=== PATIENT | female | born 1965 | race Caucasian/White ===

== ENCOUNTER 2021-11-18 04:27 | Emergency (ER) | payer OTHER, SELFPAY ==
[2021-11-18] VITALS (10 sets, daily range): BP systolic 92–122; BP diastolic 71–88; PULSE 72–100; RESP 4–16; TEMP 35.7–36.3; O2SAT 55–100; BMI 19.9
--- NOTE | 2021-11-18 04:45 | RAD_ITS ---
STUDY: X-RAY CHEST REASON FOR EXAM: Female, 56 years old. S/p intubation TECHNIQUE: Single AP portable view of the chest. COMPARISON: None. FINDINGS: Endotracheal tube tip 2.2 cm superior to the kimberli. Enteric tube coiling over the level of the gastric fundus with catheter tip over the gastric antrum. There is no demonstrated pneumothorax. There are superimposed monitor leads. There are areas of hyperinflation. There is no demonstrated pleural abnormality. Normal size heart. Normal mediastinum and adriana. Normal visualized pulmonary arteries. Normal visualized aortic arch and descending thoracic aorta. Normal visualized thoracic spine. Normal visualized ribs, clavicles, and shoulders. Air distention of upper abdominal bowel. RAD/Chest 1 View (Portable) IMPRESSION: Lines appear in good position. No pulmonary edema, congestive heart failure or confluent pneumonia. Air distended upper abdominal bowel. Electronically Signed: Yulia Bocanegra MD at 5:47 EDT Reading Location ID and State: , Service support ,
--- NOTE | 2021-11-18 04:45 | CT_ITS ---
STUDY: CT BRAIN WITHOUT CONTRAST REASON FOR EXAM: Female, 56 years old. altered mental status RADIATION DOSAGE (If Supplied By Facility): CTDIvol = ( 44.99 ) mGy, DLP = ( 846.73 ) mGycm TECHNIQUE: Transaxial CT imaging of the brain was performed without administration of intravenous contrast material. Individualized dose optimization techniques were used for this CT. COMPARISON: No relevant priors. FINDINGS: Normal soft tissue structures. Normal calvarium. There is mild cerebral atrophy With widening of the extra-axial spaces and ventricular dilatation. Prominent second and third ventricular system. There are areas of decreased attenuation within the white matter tracts of the supratentorial brain, consistent with microvascular disease changes. Normal basal ganglia and thalami. Normal brainstem. Normal cerebellum. There is no intracranial hemorrhage. There are no findings of an acute ischemic infarction. Normal visualized paranasal sinuses. CT/Brain/Head without Contrast IMPRESSION: Chronic involutional changes of the brain. Prominent second and third ventricular system possible due to normal pressure hydrocephalus. Electronically Signed: Yulia Bocanegra MD at 5:45 EDT Reading Location ID and State: , Service support ,
--- NOTE | 2021-11-18 04:45 | EKG12_ITS ---
Test Reason : UNRESPONSIVE Blood Pressure : / mmHG Vent. Rate : 075 BPM Atrial Rate : 075 BPM P-R Int : 122 ms QRS Dur : 074 ms QT Int : 404 ms P-R-T Axes : 026 012 048 degrees QTc Int : 451 ms Sinus rhythm with occasional Premature ventricular complexes Low voltage QRS Borderline ECG Confirmed by BOAZ ZIEGLER, TASIA ([id number]), website/blog editor ZEUS ESPINOZA ([id number]) on 11/21/2021 11:05:57 A M Referred By: GILBERT Confirmed By:SACHI SANDRA MD
[2021-11-18 04:56] LABS: Allen Test Positive; Base Excess -2 mmol/L (-2 to +2); Bicarbonate 22.1 mmol/L (22-26); Blood Gas Specimen Type ART; FI02 100; O2 Delivery Device Bagging; PO2 308 mmHG (75-100); SITE R Radial; SO2 100 % (95-99); Total Carbon Dioxide 23 mmol/L; pCO2 32.5 mmHg (35-45); pH 7.44 (7.35-7.45)
[2021-11-18] MEDS: Hydrocortisone Sod Succinate 100 MG/2 ML Vial IV (05:00)
[2021-11-18 05:02] LABS: Absolute Neutrophil Count 11.8 X10^3/uL (2.0-7.7); Basophil# 0.11 X10^3/uL; Basophil% 0.6 % (0-1); Eosinophil# 0.32 X10^3/uL; Eosinophils% 1.7 % (0-5); Hematocrit 34.3 % (37-47); Hemoglobin 11.7 g/dL (12.0-15.0); Lymphocyte % 23.9 % (19-41); Mean Corp Hgb Conc 34.1 g/dL (32-36); Mean Corpuscular Hgb 29.5 pg (27.0-32.0); Mean Corpuscular Volume 86.4 fL (81-99); Mean Platelet Vol. 12.5 fl (6.2-12.0); Monocyte# 1.71 X10^3/uL; Monocyte% 9.3 % (0-10); NRBC Flagged by Analyzer 0 % (0-5); Neutrophil # 11.77 X10^3/uL (2.7-7.7); Neutrophil % 63.8 % (47-70); POSITIVE DIFFERENTIAL YES; Platelet Count 117 K/mm3 (150-450); RBC Distribution Width CV 14.3 % (11.6-14.6); RBC Distribution Width SD 45.3 fl (35.1-43.9); Red Blood Count 3.97 M/mm3 (4.2-5.4); White Blood Count 18.4 K/mm3 (4.4-11.0)
[2021-11-18 05:03] LABS: Differential Indicated SCAN CRITERIA MET
[2021-11-18 05:10] LABS: International Normalized Ratio 1.2; Prothrombin Time (Protime)PT. 14.4 SECONDS (11.7-14.9)
[2021-11-18 05:11] LABS: Partial Thromboplast Time 27.5 Seconds (24.1-36.2)
[2021-11-18 05:20] LABS: Differential Comment SCANNED
[2021-11-18 05:27] LABS: Anion Gap 7 (5-15); BUN 31 mg/dL (7-18); BUN/Creat Ratio 13.6 RATIO (10-20); Calcium,Total 8.9 mg/dL (8.5-10.1); Chloride 105 mmol/L (98-107); Creatinine, Serum 2.28 mg/dL (0.55-1.02); EST Glomerular Filtration Rate 24 mL/min (>60); Est Glom Filt Rate - Afr Amer 29 mL/min (>60); Estimated Creatinine Clearance 25.39 ml/min; Glucose 164 mg/dL (74-106); Magnesium 2.1 mg/dL (1.6-2.6); Potassium 3.4 mmol/L (3.5-5.1); Sodium Level 138 mmol/L (136-145); Thyroid Stim Hormone (TSH) 5.07 uIU/mL (0.358-3.74); Troponin-I HS 4 pg/mL (3.0-54.0)
--- NOTE | 2021-11-18 05:34 | EDS_ITS ---
HPI History of Present Illness Chief Complaint: Mental Status Change Narrative Narrative: Patient is a 56-year-old female from [facility] who has past medical history of MS. reportedly intermediate found her unresponsive in a pile of emesis and due to the change in mental status called EMS. EMS states that for them she has been awake and moving all extremities but upon arrival to the hospital had a questionable seizure-like activity and then change in mental status. The patient is obtunded at this time and cannot offer any further history. [facility] Medical History Anxiety Hypertension Multiple sclerosis Allergy/AdvReac Type Severity Reaction Status Date / Time 1,4-diaminobenzene Allergy NEEDS Verified 11/18/21 05:00 FOLLOW-UP Family History unable to obtain Surgical History unable to obtain Social History (Updated 11/18/21 @ 06:[address] David Avina MD) Smoking Status: Unknown if ever smoked counseling given: other ROS ROS ED Review of Systems ROS Unobtainable: due to mental status EXAM Physical Exam Const Vital Signs: 11/18/21 04:29 11/18/21 04:36 11/18/21 04:45 Temperature 96.6 F L Temperature Source Temporal Pulse Rate 100 80 Respiratory Rate 4 L 14 Respiratory Effort Mechanically Ventilated Respiratory Depth Normal Respiratory Pattern Normal Normal Blood Pressure Blood Pressure Mean Pulse Ox 55 100 96 Oxygen Delivery Method Room Air Mechanical Ventilator Fraction of Inspired Oxygen (FIO2) 30 11/18/21 05:01 11/18/21 05:31 11/18/21 06:46 Temperature 96.3 F L Temperature Source Temporal Pulse Rate 74 80 72 Respiratory Rate 14 15 14 Respiratory Effort Respiratory Depth Respiratory Pattern Blood Pressure 100/71 92/72 Blood Pressure Mean 80 78 Pulse Ox 97 95 97 Oxygen Delivery Method Mechanical Ventilator Mechanical Ventilator Fraction of Inspired Oxygen (FIO2) 30 15 30 11/18/21 06:55 11/18/21 07:08 Temperature 97.3 F L Temperature Source Temporal Pulse Rate 83 81 Respiratory Rate 16 16 Respiratory Effort Respiratory Depth Respiratory Pattern Blood Pressure 96/84 H 110/76 Blood Pressure Mean 88 87 Pulse Ox 97 98 Oxygen Delivery Method Mechanical Ventilator Mechanical Ventilator Fraction of Inspired Oxygen (FIO2) 30 Positive well developed and cachectic General Appearance ED: well developed and cachectic Nutritional Appearance: cachectic HEENT HEENT Narrative: No signs of depressed or basilar skull fracture. There does appear to be right-sided tongue biting noted. No oral lesions. No airway edema however gag reflex is not present. Eyes Eyes Narrative: Pupils are midpoint and sluggish to respond General Eye ED: Yes pale conjunctiva Neck no JVD Chest Wall palpation of chest normal Resp Resp Narrative: Patient's breath sounds are diminished throughout with rhonchi in bilateral bases. She has agonal respirations upon arrival at a rate of approximately 2-4. Cardio regular rate and regular rhythm Rate: other Other Details: Radial pulses are +2-4 bilaterally are equal and symmetric GI non-distended and no masses GI Narrative: Bowel sounds are hypoactive. No fluid wave or pulsatile mass. Palpation: soft Extremity Extremity Narrative: No bony deformity or joint effusion noted Neuro Neuro Narrative: Patient is obtunded with GCS of 6. She does withdrawal all extremities to pain. With sternal rub patient does moan. There is no obvious facial droop noted Skin Skin Narrative: Skin is pale in color without obvious secondary changes to suggest trauma or infection. MDM MDM MDM Narrative Medical decision making narrative: Patient had an acute change upon arrival to the ER from EMS. EMS states that she seemed to be grabbing at things that were not there and then she became very pale and cool she dropped her pulse ox down to 55% and had agonal respiration she had a lot of secretions coming from her mouth as well and was not protecting her airway and her GCS was 6 and therefore she was intubated as documented below. I did note that prior to intubation there seem to be an abrasion to the right side of the tongue concerning for possible seizure. Patient's papers from the intermediate did not report any history of this nor other any antiseizure medications listed on her medication list. Noncontrast CT of the brain showed chronic changes from her MS but no acute bleed or mass. By exam she had a rhonchi on auscultation and secretions in her airway concerning for aspiration but chest x-ray does not show any acute infection at this time. Patient's urine sample does show infection but she has a chronic indwelling Lucia and is hard to determine if this is from contamination/colonization or true infection. White count is elevated as well as her lactic which could be related to stress response and seizure activity. Patient was started on Unasyn which should cover the urine as well as possible aspiration. Blood cultures and urine cultures were obtained. Patient did have improvement of her mental status to the point where she was reaching towards a 2 but would still not follow command and therefore she was started on Versed. After discussing case with the bank analyst with possibility of new onset seizure it was recommended that she be given a Keppra bolus. At this time we do not have a functional EEG machine at our facility and cannot truly evaluate this patient to know if her change in mental status is secondary to seizure activity. Therefore she will be transferred to [facility]. The case was discussed with our bank analyst and he is willing to accept the patient at this time. Lab Data Attestation: I reviewed the patient's lab results. Labs: Laboratory Results - last 24 hr 11/18/21 11/18/21 11/18/21 04:45 04:45 04:45 WBC 18.4 H RBC 3.97 L Hgb 11.7 L Hct 34.3 L MCV 86.4 MCH 29.5 MCHC 34.1 RDW Std Deviation 45.3 H RDW Coeff of Elizabeth 14.3 Plt Count 117 L MPV 12.5 H Immature Gran % (Auto) 0.700 Neut % (Auto) 63.8 Lymph % (Auto) 23.9 [place] % (Auto) 9.3 Eos % (Auto) 1.7 Baso % (Auto) 0.6 Absolute Neuts (auto) 11.8 H Absolute Lymphs (auto) 4.40 Nucleated RBC % 0 Differential Comment SCANNED Diff Path Review January foll PT 14.4 INR 1.2 APTT 27.5 Sodium 138 Potassium 3.4 L Chloride 105 Carbon Dioxide 26.0 Anion Gap 7 BUN 31 H Creatinine 2.28 H Estim Creat Clear Calc 25.39 Est GFR (MDRD) Af Amer 29 L Est GFR (MDRD) Non-Af 24 L BUN/Creatinine Ratio 13.6 Glucose 164 H Lactic Acid Calcium 8.9 Magnesium 2.1 Ammonia Troponin I High Sens 4 Procalcitonin TSH 5.07 H Urine Color Urine Clarity Urine pH Ur Specific [place] Urine Protein Urine Glucose (UA) Urine Ketones Urine Occult Blood Urine Nitrite Urine Bilirubin Urine Urobilinogen Ur Leukocyte Esterase Urine RBC Urine WBC Ur Squamous Epith Cells Ur Transition Epith Cell Calcium Oxalate Crystal Urine Bacteria Urine Mucus 11/18/21 11/18/21 11/18/21 04:45 04:45 05:30 WBC RBC Hgb Hct MCV MCH MCHC RDW Std Deviation RDW Coeff of Elizabeth Plt Count MPV Immature Gran % (Auto) Neut % (Auto) Lymph % (Auto) [place] % (Auto) Eos % (Auto) Baso % (Auto) Absolute Neuts (auto) Absolute Lymphs (auto) Nucleated RBC % Differential Comment Diff Path Review PT INR APTT Sodium Potassium Chloride Carbon Dioxide Anion Gap BUN Creatinine Estim Creat Clear Calc Est GFR (MDRD) Af Amer Est GFR (MDRD) Non-Af BUN/Creatinine Ratio Glucose Lactic Acid 3.1 H* Calcium Magnesium Ammonia 19.0 Troponin I High Sens Procalcitonin 0.17 H TSH Urine Color Urine Clarity Urine pH Ur Specific [place] Urine Protein Urine Glucose (UA) Urine Ketones Urine Occult Blood Urine Nitrite Urine Bilirubin Urine Urobilinogen Ur Leukocyte Esterase Urine RBC Urine WBC Ur Squamous Epith Cells Ur Transition Epith Cell Calcium Oxalate Crystal Urine Bacteria Urine Mucus 11/18/21 05:56 WBC RBC Hgb Hct MCV MCH MCHC RDW Std Deviation RDW Coeff of Elizabeth Plt Count MPV Immature Gran % (Auto) Neut % (Auto) Lymph % (Auto) [place] % (Auto) Eos % (Auto) Baso % (Auto) Absolute Neuts (auto) Absolute Lymphs (auto) Nucleated RBC % Differential Comment Diff Path Review PT INR APTT Sodium Potassium Chloride Carbon Dioxide Anion Gap BUN Creatinine Estim Creat Clear Calc Est GFR (MDRD) Af Amer Est GFR (MDRD) Non-Af BUN/Creatinine Ratio Glucose Lactic Acid Calcium Magnesium Ammonia Troponin I High Sens Procalcitonin TSH Urine Color Yellow Urine Clarity Cloudy Urine pH 6.5 Ur Specific [place] 1.015 Urine Protein 500 H Urine Glucose (UA) Normal Urine Ketones 5 H Urine Occult Blood 50 H Urine Nitrite Negative Urine Bilirubin Negative Urine Urobilinogen Normal Ur Leukocyte Esterase 500 H Urine RBC 10-25 SEEN Urine WBC >100 SEEN Ur Squamous Epith Cells 0-5 SEEN Ur Transition Epith Cell 0-5 SEEN Calcium Oxalate Crystal RARE Urine Bacteria 3+ Urine Mucus 2+ ABG Data ABG results: ABG 11/18/21 11/18/21 04:51 04:51 Specimen Type ART ART Sample Site R Radial R Radial pH 7.44 7.44 Bicarbonate Actual 22.1 22.1 Total CO2 23 23 Base Excess -2 -2 O2 Saturation 100 H 100 H O2 % 100 100 ABG pCO2 32.5 L 32.5 L ABG pO2 308 H* 308 H* Kurt Test Positive Positive O2 Delivery Device Bagging Bagging Crit Call To/Read Back Yes Yes Blood Gas Notified Whom Dr.Andes Ramsey Radiography Diagnostic Testing: Clinical Impression(s) from Imaging Studies Brain CT 11/18/21 04:45 IMPRESSION: Chronic involutional changes of the brain. Prominent second and third ventricular system possible due to normal pressure hydrocephalus. Electronically Signed: Yulia Bocanegra MD at 5:45 EDT Reading Location ID and State: , Service support , Chest X-Ray 11/18/21 04:45 IMPRESSION: Lines appear in good position. No pulmonary edema, congestive heart failure or confluent pneumonia. Air distended upper abdominal bowel. Electronically Signed: Yulia Bocanegra MD at 5:47 EDT Reading Location ID and State: , Service support , Discharge Plan Triage Chief Complaint: Mental Status Change ED Provider: Amrit Morales Dx/Rx/DC Orders Clinical Impression: Acute encephalopathy, Aspiration pneumonia, UTI (urinary tract infection), Seizures Primary Care Provider: Yoel Hope Referrals: Yoel Hope MD [Primary Care Provider] - Disposition Disposition: Acute Care Hospital Discharge Location: [facility]
[2021-11-18 05:37] LABS: Lactic Acid 3.1 mmol/L (0.4-1.9)
[2021-11-18 06:01] LABS: Color, Urine Yellow (Yellow); Glucose, Dipstick Normal (Normal); Ketone-Dipstick 5 mg/dl (Negative); Leukocyte Esterase-Dipstick 500 /ul (Negative); Nitrite-Dipstick Negative (Negative); Occult Blood-Urine 50 /ul (Negative); Protein-Dipstick 500 mg/dl (Negative); Specific Gravity, Urine 1.015 (1.002-1.030); Urine Bilirubin Dipstick Negative (Negative); Urine Clarity Cloudy (Clear); Urine Urobilinogen Normal (Normal); Urine pH 6.5 (5.0 - 8.0)
[2021-11-18 06:03] LABS: Procalcitonin 0.17 ng/mL (0.00-0.09)
[2021-11-18 06:09] LABS: Bacteria 3+ /hpf (None Seen); Calcium Oxalate Crystals Ur RARE /hpf (<or=2+); Mucous, Urine 2+ /hpf (<or=2+); Red Blood Cells-Urine 10-25 SEEN /hpf (0-5); Squamous Epithelial Cells - UA 0-5 SEEN /hpf (5-10); Transitional Epithelial - Ur 0-5 SEEN /hpf (0-5); White Blood Cells >100 SEEN /hpf (0-5)
[2021-11-18] MEDS: 0.9% Normal Saline 1,000 ML 999 ML IV ×2 (06:20→07:40)
--- NOTE | 2021-11-18 06:48 | HP.PCM.HOS_ITS ---
HPI - General HPI Narrative MARIA G CHILEL, is a 56 F with a significant history of multiple sclerosis and hypertension who lives at [facility] presenting with altered mental status. History was obtained from emergency department doctor as patient was unresponsive and intubated at the time of history taking. Per emergency department doctor history is conflicting. Per emergency department doctor care home report that patient was found unresponsive in a pile of vomitus. Also emergent department doctor reported that Per EMS patient was talking when EMS got there. Patient then vomited and became unresponsive. Reportedly on presentation at the ED patient was grabbing things. She appeared unable to protect her airway. Her oxygen saturation was 55%; and she had no gag reflex. She had a bite dillon on on the right side of her tongue and she was emergently intubated. Upon intubation initially she was not given any sedation. However nurse reported that patient began to wake up so emergent department doctor ordered Versed drip. Propofol drip was not ordered because blood pressures were soft. Patient was given Unasyn at the emergency department for possible aspiration pneumonia. Emergent department doctor initially questioned MS exacerbation so hydrocortisone was given [facility] Medical History Anxiety Hypertension Multiple sclerosis Allergy/AdvReac Type Severity Reaction Status Date / Time 1,4-diaminobenzene Allergy NEEDS Verified 11/18/21 05:00 FOLLOW-UP Family History unable to obtain unable to obtain (Secondary to encephalopathy) Surgical History unable to obtain unable to obtain (Secondary to encephalopathy) Social History (Updated 11/18/21 @ 06:[address] David Avina MD) Smoking Status: Unknown if ever smoked counseling given: other ROS Review of Systems ROS Unobtainable: due to encephalopathy Vital Signs Vital Signs Vital Signs: 11/18/21 04:29 11/18/21 04:36 11/18/21 04:45 Temperature 96.6 F L Temperature Source Temporal Pulse Rate 100 80 Respiratory Rate 4 L 14 Respiratory Effort Mechanically Ventilated Respiratory Depth Normal Respiratory Pattern Normal Normal Blood Pressure Blood Pressure Mean Pulse Ox 55 100 96 Oxygen Delivery Method Room Air Mechanical Ventilator Fraction of Inspired Oxygen (FIO2) 30 11/18/21 05:01 11/18/21 05:31 Temperature 96.3 F L Temperature Source Temporal Pulse Rate 74 80 Respiratory Rate 14 15 Respiratory Effort Respiratory Depth Respiratory Pattern Blood Pressure 100/71 92/72 Blood Pressure Mean 80 78 Pulse Ox 97 95 Oxygen Delivery Method Mechanical Ventilator Mechanical Ventilator Fraction of Inspired Oxygen (FIO2) 30 15 Weight Weight: 57.7 kg Body Mass Index (BMI) 19.9 Physical Exam Narrative Physical exam: General: Intubated on mechanical ventilation and shaking head Head: Normocephalic, atraumatic, no tenderness Eyes: Mydriasis. Pupils reactive to light. ENT, no trauma, no rhinorrhea Neck: ET tube in place. Trachea midline. CVS: Regular rate and rhythm. S1-S2 present. No murmur, gallop or rub. Respiratory : clear to auscultation bilaterally, chest wall nontender, no wheezing Abdomen: Soft, nontender, nondistended, normal bowel sounds, no masses : Indwelling Lucia catheter in place. Back: Nontender, no CVA tenderness, no midline spinal tenderness, deformities, Extremities: No edema, no cyanosis. Skin: Normal color, no trauma, abrasions Neuro: Intubated on mechanical ventilation and shaking head. Psychiatry: Intubated on mechanical ventilation. Results Lab / Micro Data Result Diagrams: 11/18/21 04:45 11/18/21 04:45 Labs: Laboratory Results - last 24 hr 11/18/21 04:45: WBC 18.4 H, RBC 3.97 L, Hgb 11.7 L, Hct 34.3 L, MCV 86.4, MCH 29.5, MCHC 34.1, RDW Std Deviation 45.3 H, RDW Coeff of Elizabeth 14.3, Plt Count 117 L, MPV 12.5 H, Immature Gran % (Auto) 0.700, Neut % (Auto) 63.8, Lymph % (Auto) 23.9, [place] % (Auto) 9.3, Eos % (Auto) 1.7, Baso % (Auto) 0.6, Absolute Neuts (auto) 11.8 H, Absolute Lymphs (auto) 4.40, Nucleated RBC % 0, Differential Comment SCANNED, Diff Path Review January11/18/21 04:45: PT 14.4, INR 1.2, APTT 27.5 11/18/21 04:45: Sodium 138, Potassium 3.4 L, Chloride 105, Carbon Dioxide 26.0, Anion Gap 7, BUN 31 H, Creatinine 2.28 H, Estim Creat Clear Calc 25.39, Est GFR (MDRD) Af Amer 29 L, Est GFR (MDRD) Non-Af 24 L, BUN/Creatinine Ratio 13.6, Glucose 164 H, Calcium 8.9, Magnesium 2.1, Troponin I High Sens 4, TSH 5.07 H 11/18/21 04:45: Ammonia 19.0 11/18/21 04:45: Lactic Acid 3.1 H* 11/18/21 05:30: Procalcitonin 0.17 H 11/18/21 05:56: Urine Color Yellow, Urine Clarity Cloudy, Urine pH 6.5, Ur Specific [place] 1.015, Urine Protein 500 H, Urine Glucose (UA) Normal, Urine Ketones 5 H, Urine Occult Blood 50 H, Urine Nitrite Negative, Urine Bilirubin Negative, Urine Urobilinogen Normal, Ur Leukocyte Esterase 500 H, Urine RBC 10- 25 SEEN, Urine WBC >100 SEEN, Ur Squamous Epith Cells 0-5 SEEN, Ur Transition Epith Cell 0-5 SEEN, Calcium Oxalate Crystal RARE, Urine Bacteria 3+, Urine Mucus 2+ ABG Data ABG results: ABG 11/18/21 11/18/21 04:51 04:51 Specimen Type ART ART Sample Site R Radial R Radial pH 7.44 7.44 Bicarbonate Actual 22.1 22.1 Total CO2 23 23 Base Excess -2 -2 O2 Saturation 100 H 100 H O2 % 100 100 ABG pCO2 32.5 L 32.5 L ABG pO2 308 H* 308 H* Kurt Test Positive Positive O2 Delivery Device Bagging Bagging Crit Call To/Read Back Yes Yes Blood Gas Notified Whom Dr.Andes Ramsey Radiology Impression Brain CT 11/18/21 04:45 IMPRESSION: Chronic involutional changes of the brain. Prominent second and third ventricular system possible due to normal pressure hydrocephalus. Electronically Signed: Yulia Bocanegra MD at 5:45 EDT Reading Location ID and State: , Service support , Chest X-Ray 11/18/21 04:45 IMPRESSION: Lines appear in good position. No pulmonary edema, congestive heart failure or confluent pneumonia. Air distended upper abdominal bowel. Electronically Signed: Yulia Bocanegra MD at 5:47 EDT Reading Location ID and State: , Service support , Assessment & Plan Assessment/Plan (1) Acute encephalopathy: (2) Aspiration pneumonia: QUALIFIERS: Aspiration pneumonia type: due to gastric secretions Laterality: unspecified laterality Lung location: unspecified part of lung Qualified Code(s): J69.0 - Pneumonitis due to inhalation of food and vomit (3) UTI (urinary tract infection): QUALIFIERS: Hematuria presence: without hematuria Urinary tract infection type: acute cystitis Qualified Code(s): N30.00 - Acute cystitis without hematuria (4) Seizures: PLAN: Acute encephalopathy likely secondary to aspiration pneumonia Cannot rule out seizures Chest x-ray was visualized and independently interpreted and agree radiologist interpretation above. CT chest was independently visualized no acute pathology. Enlarged ventricles noted. Review of CBC showed leukocytosis. Trend CBC. Blood culture obtained emergency department; follow. Intubated at the emergency department and started on Versed drip that will help with possible seizures. Versed drip continued. Pepcid while on mechanical ventilation. There is no EEG at facility. Discussed emergent department doctor to attempt transferring patient to outside facility. If beds are unavailable then patient will stay at the facility and be admitted to intensive care. Telecommunications Manager consult. UTI Urinalysis obtained at the emergency department was abnormal. However patient has a chronic Lucia and acute contamination and will. Placed on Unasyn as above. Follow urine culture DVT prophylaxis: SCD ordered. Charges/Coding Visit Charges Inpatient E&M: 80454 Init Hosp L3
[2021-11-18] MEDS: levETIRAcetam IV 1,000 MG/100 ML BAG 400 MG IV (08:00)
--- NOTE | 2021-11-18 08:04 | ED.RN ---
CALLED [facility] FOR A [facility], THE ETA WAS 10;[address] GONZALES WHO SAID TO FLY THE PATIENT. CALLED [facility]
[2021-11-18 08:46] LABS: Bedside Glucose 120 mg/dL (74-106)
--- NOTE | 2021-11-18 08:47 | ED.RN ---
called . updated regarding pt status care and transfer.
[2021-11-18 08:59] LABS: Reflex Lactate? Y
[2021-11-18 13:09] LABS: Pathologist Review Reviewed
== END 2021-11-18 09:00 | disposition short-term general hospital (02) ==
PROVIDERS: Emergency Provider Emergency Medicine; PCP Family Medicine; Visit Provider Emergency Medicine
DX: G93.40 Encephalopathy, unspecified (principal); J69.0 Pneumonitis due to inhalation of food and vomit; R64 Cachexia; G35 Multiple sclerosis; R56.9 Unspecified convulsions; N30.00 Acute cystitis without hematuria; I10 Essential (primary) hypertension; Z79.899 Other long term (current) drug therapy; Z96.0 Presence of urogenital implants; Z68.1 Body mass index [BMI] 19.9 or less, adult
CPT/HCPCS: 31500; 31720; 36415; 36600; 70450; 71045; 80048; 81001; 82140; 82803; 82962; 83605; 83735; 84145; 84443; 84484; 85025; 85610; 85730; 87040; 87811; 93005; 94002; 96365; 96366; 96367; 96368; 96375; 99251; 99285; J7030; A4216; G0463; J0295

== ENCOUNTER 2022-02-05 00:47 | Inpatient (IN) | payer OTHER, SELFPAY ==
[2022-02-05] VITALS (12 sets, daily range): BP systolic 74–152; BP diastolic 63–97; PULSE 57–102; RESP 12–24; TEMP 34.9–37.9; O2SAT 94–100; BMI 17.5
--- NOTE | 2022-02-05 01:06 | EDS_ITS ---
HPI History of Present Illness Chief Complaint: Alt LOC Informant: EMS and SNF Onset/Context/Timing Onset: Today Timing: Continuous Narrative Narrative: Patient presents with low blood pressure and altered mental status that was noticed tonight at the extended care facility. Patient is a very poor historian. Patient keeps saying I am scared. Staff noticed that the patient's blood pressure was low tonight. Patient is unable to provide any other history. [facility] Medical History Anxiety and depression Chronic deep vein thrombosis (DVT) Chronic indwelling Lucia catheter Hypertension Neurogenic bladder Relapsing remitting multiple sclerosis Severe malnutrition Wheelchair bound Home Medications Lactobacillus acidophilus [Acidophilus] 1 cap PO DAILY 02/05/22 [History Last Taken Unknown] baclofen 10 mg PO TID 02/05/22 [History Last Taken Unknown] cholecalciferol (vitamin D3) 50 mcg PO DAILY 02/05/22 [History Last Taken Unknown] mirtazapine 15 mg PO QHS 02/05/22 [History Last Taken Unknown] multivitamin with minerals [Multiple Vitamin-Minerals] 1 tab PO DAILY 02/05/22 [History Last Taken Unknown] pantoprazole 40 mg PO DAILY 02/05/22 [History Last Taken Unknown] polyethylene glycol 3350 [Miralax] 17 g PO DAILY 02/05/22 [History Last Taken Unknown] sennosides 8.6 mg PO QHS 02/05/22 [History Last Taken Unknown] Allergy/AdvReac Type Severity Reaction Status Date / Time 1,4-diaminobenzene Allergy NEEDS Verified 11/18/21 05:00 FOLLOW-UP Family History Mother Hypertension Father Hypertension Surgical History S/P section S/P hysterectomy Social History (Updated 02/05/22 @ 04:17 by Cece Fuller) housing: alf Smoking Status: Never smoker Smokeless tobacco user: chewing tobacco how long ago did patient quit smoking: Unclear when she quit chew tobacco. counseling given: other alcohol intake: never substance use type: does not use ROS ROS ED Review of Systems ROS Unobtainable: due to mental condition EXAM Physical Exam Const Vital Signs: 02/05/22 00:49 Temperature 95.7 F L Temperature Source Temporal Pulse Rate 64 Respiratory Rate 24 H Blood Pressure 74/63 L Blood Pressure Mean 66 Oxygen Delivery Method Room Air General Appearance ED: NAD Neck supple and no JVD Resp normal respiratory effort and clear to auscultation bilaterally Cardio regular rate and regular rhythm GI non-tender Palpation: soft Neuro CN's II-XII intact bilaterally and no sensory deficits noted Sensorium / Orientation: alert and oriented to person Motor Exam: strength 5/5 throughout MDM MDM MDM Narrative Medical decision making narrative: Patient with given a IV fluids. Patient was given a dose of Unasyn here in the emergency department. CBC showed a thrombocytopenia with a platelet count of 30. PT was INR and PTT were within normal limits. Comprehensive metabolic profile showed a BUN of 64 and creatinine of 1.94. CT scan of the brain was obtained. There is no acute intracranial abnormality. This was interpreted by the radiologist and reviewed by myself. Portable 1 view chest x-ray was obtained. On my interpretation, lung langley are clear. There is normal cardiac silhouette. Bony thorax is normal. There is no acute process noted. Radiologist also interpreted the x- ray and agrees. Case was discussed with the hospitalist. She will admit the patient to her service. Lab Data Attestation: I reviewed the patient's lab results. Labs: Laboratory Results - last 24 hr 02/05/22 02/05/22 02/05/22 01:00 01:00 01:00 WBC 6.9 RBC 4.52 Hgb 12.7 Hct 39.9 MCV 88.3 MCH 28.1 MCHC 31.8 L RDW Std Deviation 47.7 H RDW Coeff of Elizabeth 15.0 H Plt Count 30 L* Immature Gran % (Auto) 0.300 Neut % (Auto) 73.8 H Lymph % (Auto) 16.2 L Travis % (Auto) 9.6 Eos % (Auto) 0.0 Baso % (Auto) 0.1 Absolute Neuts (auto) 5.1 Absolute Lymphs (auto) 1.11 Nucleated RBC % 0 Differential Comment SCANNED Diff Path Review January foll PT 14.3 INR 1.1 APTT 29.8 Sodium 139 Potassium 3.9 Chloride 104 Carbon Dioxide 28.0 Anion Gap 7 BUN 64 H Creatinine 1.94 H Estim Creat Clear Calc 22.86 Est GFR (MDRD) Af Amer 34 L Est GFR (MDRD) Non-Af 28 L BUN/Creatinine Ratio 33.0 H Glucose 133 H Lactic Acid Calcium 9.1 Total Bilirubin 0.90 AST 32 ALT 27 Alkaline Phosphatase 63 Total Protein 7.8 Albumin 2.8 L Globulin 5.0 H Albumin/Globulin Ratio 0.6 L 02/05/22 01:00 WBC RBC Hgb Hct MCV MCH MCHC RDW Std Deviation RDW Coeff of Elizabeth Plt Count Immature Gran % (Auto) Neut % (Auto) Lymph % (Auto) Travis % (Auto) Eos % (Auto) Baso % (Auto) Absolute Neuts (auto) Absolute Lymphs (auto) Nucleated RBC % Differential Comment Diff Path Review PT INR APTT Sodium Potassium Chloride Carbon Dioxide Anion Gap BUN Creatinine Estim Creat Clear Calc Est GFR (MDRD) Af Amer Est GFR (MDRD) Non-Af BUN/Creatinine Ratio Glucose Lactic Acid Cancelled Calcium Total Bilirubin AST ALT Alkaline Phosphatase Total Protein Albumin Globulin Albumin/Globulin Ratio Radiography Diagnostic Testing: Clinical Impression(s) from Imaging Studies Brain CT 02/05/22 01:08 IMPRESSION: Chronic involutional changes of the brain. Electronically Signed: Narciso Pickard DO at 2:32 EDT Reading Location ID and State: [facility] / [place] Tel , Service support , Chest X-Ray 02/05/22 01:08 IMPRESSION: Normal x-ray examination of the chest. Electronically Signed: Narciso Pickard DO at 1:55 EDT Reading Location ID and State: [facility] / [place] Tel , Service support , Discharge Plan Dx/Rx/DC Orders Clinical Impression: Acute encephalopathy, Aspiration pneumonia, UTI (urinary tract infection) Disposition Disposition: Acute Care Hospital [facility] Discharge Date/Time: 02/05/22 03:42
--- NOTE | 2022-02-05 01:08 | CT_ITS ---
STUDY: CT BRAIN WITHOUT CONTRAST REASON FOR EXAM: Female, 56 years old. Altered mental status RADIATION DOSAGE (If Supplied By Facility): CTDIvol = ( 44.99 ) mGy, DLP = ( 863.60 ) mGycm TECHNIQUE: Transaxial CT imaging of the brain was performed without administration of intravenous contrast material. Individualized dose optimization techniques were used for this CT. COMPARISON: Head CT dated 11/18/2021 FINDINGS: Normal soft tissue structures. Normal calvarium. There is mild cerebral atrophy with widening of the extra-axial spaces and ventricular dilatation. There are areas of decreased attenuation within the white matter tracts of the supratentorial brain, consistent with microvascular disease changes. Normal basal ganglia and thalami. Normal brainstem. There is mild cerebellar atrophy. There is no intracranial hemorrhage. There are no findings of an acute ischemic infarction. Normal visualized paranasal sinuses. CT/Brain/Head without Contrast IMPRESSION: Chronic involutional changes of the brain. Electronically Signed: Narciso Pickard DO at 2:32 EDT ,
--- NOTE | 2022-02-05 01:08 | RAD_ITS ---
STUDY: X-RAY CHEST REASON FOR EXAM: Female, 56 years old. Altered mental status TECHNIQUE: Single AP portable view of the chest. COMPARISON: November 18, 2021 FINDINGS: The lungs are clear and expanded. There is no demonstrated pleural abnormality. Normal size heart. Normal mediastinum and adriana. Normal visualized pulmonary arteries. Normal visualized aortic arch and descending thoracic aorta. Normal visualized thoracic spine. Normal visualized ribs, clavicles, and shoulders. There is no demonstrated abnormality of the visualized soft tissue structures of the upper abdomen. RAD/Chest 1 View (Portable) IMPRESSION: Normal x-ray examination of the chest. Electronically Signed: Narciso Pickard DO at 1:55 EDT ,
[2022-02-05 01:38] LABS: Absolute Lymphocyte Count 1.11 X10^3/uL (0.83-4.51); Absolute Neutrophil Count 5.1 X10^3/uL (2.0-7.7); Basophil# 0.01 X10^3/uL; Basophil% 0.1 % (0-1); Hematocrit 39.9 % (37-47); Hemoglobin 12.7 g/dL (12.0-15.0); Lymphocyte # 1.11 X10^3/ul (0.83-4.51); Lymphocyte % 16.2 % (19-41); Mean Corp Hgb Conc 31.8 g/dL (32-36); Mean Corpuscular Hgb 28.1 pg (27.0-32.0); Mean Corpuscular Volume 88.3 fL (81-99); Monocyte# 0.66 X10^3/uL; Monocyte% 9.6 % (0-10); NRBC Flagged by Analyzer 0 % (0-5); Neutrophil # 5.05 X10^3/uL (2.7-7.7); Neutrophil % 73.8 % (47-70); POSITIVE COUNT YES; RBC Distribution Width SD 47.7 fl (35.1-43.9); Red Blood Count 4.52 M/mm3 (4.2-5.4); White Blood Count 6.9 K/mm3 (4.4-11.0)
[2022-02-05 01:46] LABS: Differential Indicated SCAN CRITERIA MET
[2022-02-05 01:52] LABS: International Normalized Ratio 1.1; Partial Thromboplast Time 29.8 Seconds (24.1-36.2); Prothrombin Time (Protime)PT. 14.3 SECONDS (11.7-14.9)
[2022-02-05 02:05] LABS: Differential Comment SCANNED
[2022-02-05 02:12] LABS: Platelet Count 30 K/mm3 (150-450)
[2022-02-05 02:17] LABS: ALB/GLOB Ratio 0.6 RATIO (0.9-2.4); AST(SGOT) 32 U/L (15-37); Alanine Aminotransfer ALT/SGPT 27 U/L (13-56); Albumin, Serum 2.8 g/dL (3.2-5.0); Alkaline Phosphatase 63 U/L (45-117); Anion Gap 7 (5-15); BUN 64 mg/dL (7-18); Calcium,Total 9.1 mg/dL (8.5-10.1); Chloride 104 mmol/L (98-107); Creatinine, Serum 1.94 mg/dL (0.55-1.02); EST Glomerular Filtration Rate 28 mL/min (>60); Est Glom Filt Rate - Afr Amer 34 mL/min (>60); Estimated Creatinine Clearance 22.86 ml/min; Glucose 133 mg/dL (74-106); Potassium 3.9 mmol/L (3.5-5.1); Protein, Total 7.8 g/dL (6.4-8.2); Sodium Level 139 mmol/L (136-145)
--- NOTE | 2022-02-05 02:37 | HP.PCM.HOS_ITS ---
HPI - General General Date of Admission: 02/05/22 Date of Service: 02/05/22 Chief Complaint: Encephalopathy, recent COVID diagnosis HPI Narrative The patient is a 56 y/o F residing at [facility] w/ PMHx: Relapsing remitting multiple sclerosis wheelchair bound w/ neurogenic bowel/bladder with chronic indwelling Reno catheter and chronic constipation issues, HTN, 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, Anxiety and Depression, Former chew tobacco, Severe protein-calorie malnutrition, recent COVID-19 diagnosis 01/31/22, history of prolonged admission 11/18/21-11/27/21 initially evaluated [facility] but transferred to [facility] secondary to concerns seizure eventually diagnosed w/ acute hypoxia respiratory failure with intubation secondary to aspiration PNA eventually cleared per speech w/ MBS with no aspiration, acute enteroccocal UTI in setting of chronic reno catheter, SHERIDAN felt secondry to stool burden obstruction with bilateral hydronephrosis who now presents to the [facility] ED on 02/05/22 with history of noted significantly low blood pressures at skilled facility as well as change in mental status noting that patient keeps reporting that she is scared unable to provide any other further history which is not her baseline prompting referral to ED for evaluation. Patient of note had been diagnosed on routine testing with COVID 01/31/2022 at facility. Work-up in the ED included T95.7, heart rate 64, BP 74/63, respiratory rate 24, CBC with WC 6.9, hemoglobin 12.7, platelet 30 without significant shift, unremarkable coags, CMP with BUN/creatinine 64/1.94, glucose 133, unremarkable hepatic profile, lactic acid pending chest x-ray with no acute card iopulmonary findings, Bld Cx x 2 pending per ED, UA/UCx pending upon evaluation, CT brain with chronic involutional changes. In the ED urine appears cloudy and purulent but as noted awaiting labs for confirmation. Discussed with ED physician and will administer IV unasyn based on UCx at [facility] and change catheter to be cautious. [facility] Medical History Anxiety and depression Chronic deep vein thrombosis (DVT) Chronic indwelling Reno catheter Hypertension Neurogenic bladder Relapsing remitting multiple sclerosis Severe malnutrition Wheelchair bound Home Medications Lactobacillus acidophilus [Acidophilus] 1 cap PO DAILY 02/05/22 [History Last Taken Unknown] baclofen 10 mg PO TID 02/05/22 [History Last Taken Unknown] cholecalciferol (vitamin D3) 50 mcg PO DAILY 02/05/22 [History Last Taken Unknown] mirtazapine 15 mg PO QHS 02/05/22 [History Last Taken Unknown] multivitamin with minerals [Multiple Vitamin-Minerals] 1 tab PO DAILY 02/05/22 [History Last Taken Unknown] pantoprazole 40 mg PO DAILY 02/05/22 [History Last Taken Unknown] polyethylene glycol 3350 [Miralax] 17 g PO DAILY 02/05/22 [History Last Taken Unknown] sennosides 8.6 mg PO QHS 02/05/22 [History Last Taken Unknown] Allergy/AdvReac Type Severity Reaction Status Date / Time 1,4-diaminobenzene Allergy NEEDS Verified 11/18/21 05:00 FOLLOW-UP Family History (Updated 02/05/22 @ 01:[address] Beata Leonard MD) Mother Hypertension Father Hypertension Surgical History S/P section S/P hysterectomy Social History housing: longterm Smoking Status: Never smoker Smokeless tobacco user: chewing tobacco how long ago did patient quit smoking: Unclear when she quit chew tobacco. counseling given: other alcohol intake: never substance use type: does not use ROS Review of Systems ROS Unobtainable: due to encephalopathy Vital Signs Vital Signs Vital Signs: 02/05/22 00:49 Temperature 95.7 F L Temperature Source Temporal Pulse Rate 64 Respiratory Rate 24 H Blood Pressure 74/63 L Blood Pressure Mean 66 Oxygen Delivery Method Room Air Weight Weight: 97 lb 7.109 oz Body Mass Index (BMI) 0.0 Physical Exam Narrative Physical Examination: General: Awake, alert, cannot answer any orientation questions, frequently hollering out for help, following some commands but in general not cooperative, laying in the ED bed, agitated. Skin: Normal color, normal turgor, no icterus, no cyanosis except occasional staged ecchymoses, chronic stasis ulcers HEENT: AT/NC, EOMI, PERRLA, dry MM, no carotid bruits or JVD noted. Lungs: Diminished, greater bases, mildly increased respiratory rate but no distress, no rales, ronchi or wheezing. Heart: Currently regular rate and rhythm; no gallop, rub audible. Abdomen: Soft, NTTP, ND, distant normal BS, no HSM. Extremities: No cyanosis, clubbing, or edema, bedbound status with significant debility with multiple sclerosis, wheelchair-bound since 2017. Neurological: Patient awake, alert, oriented as noted cognitive function not baseline intact; pupils equally reactive to light and accommodation, cranial nerves grossly normal, wheelchair-bound, significantly severe MS, strength severely global decreased Psychiatric: Affect appears agitated, underlying history of depression and anxiety. Results Lab / Micro Data Result Diagrams: 02/05/22 01:00 02/05/22 01:00 Labs: Laboratory Results - last 24 hr 02/05/22 01:00: WBC 6.9, RBC 4.52, Hgb 12.7, Hct 39.9, MCV 88.3, MCH 28.1, MCHC 31.8 L, RDW Std Deviation 47.7 H, RDW Coeff of Elizabeth 15.0 H, Plt Count 30 L*, Immature Gran % (Auto) 0.300, Neut % (Auto) 73.8 H, Lymph % (Auto) 16.2 L, Drew % (Auto) 9.6, Eos % (Auto) 0.0, Baso % (Auto) 0.1, Absolute Neuts (auto) 5.1, Absolute Lymphs (auto) 1.11, Nucleated RBC % 0, Differential Comment SCANNED, Diff Path Review January02/05/22 01:00: PT 14.3, INR 1.1, APTT 29.8 02/05/22 01:00: Sodium 139, Potassium 3.9, Chloride 104, Carbon Dioxide 28.0, Anion Gap 7, BUN 64 H, Creatinine 1.94 H, Estim Creat Clear Calc 22.86, Est GFR (MDRD) Af Amer 34 L, Est GFR (MDRD) Non-Af 28 L, BUN/Creatinine Ratio 33.0 H, Glucose 133 H, Calcium 9.1, Total Bilirubin 0.90, AST 32, ALT 27, Alkaline Phosphatase 63, Total Protein 7.8, Albumin 2.8 L, Globulin 5.0 H, Albumin/Globulin Ratio 0.6 L 02/05/22 01:00: Lactic Acid Cancelled Micro: Microbiology 02/05/22 01:30 Nasal Secretion SARS-CoV-2 & FLU Antigen (Rapid) - Final SARS-CoV-2 (COVID 19) Radiology Impression Brain CT 02/05/22 01:08 IMPRESSION: Chronic involutional changes of the brain. Electronically Signed: Narciso DO Melly at 2:32 EDT , Chest X-Ray 02/05/22 01:08 IMPRESSION: Normal x-ray examination of the chest. Electronically Signed: Narciso Pickard DO at 1:55 EDT , Assessment & Plan Assessment/Plan (1) Acute encephalopathy: PLAN: The patient is a 56 y/o F residing at [facility] w/ PMHx: Relapsing remitting multiple sclerosis wheelchair bound w/ neurogenic bowel/bladder with chronic indwelling Reno catheter and chronic constipation issues, HTN, 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, Anxiety and Depression, Former chew tobacco, Severe protein-calorie malnutrition, recent COVID-19 diagnosis 01/31/22, history of prolonged admission 11/18/21-11/27/21 initially evaluated [facility] but transferred to [facility] secondary to concerns seizure eventually diagnosed w/ acute hypoxia respiratory failure with intubation secondary to aspiration PNA eventually cleared per speech w/ MBS with no aspiration, acute enteroccocal UTI in setting of chronic reno catheter, SHERIDAN felt secondry to stool burden obstruction with bilateral hydronephrosis who now presents to the [facility] ED on 02/05/22 with history of noted significantly low blood pressures at skilled facility as well as change in mental status noting that patient keeps reporting that she is scared unable to provide any other further history which is not her baseline prompting refer ral to ED for evaluation. #1. Acute Encephalopathy, Multifactorial, Infectious/Metabolic, #2, #4 and possible recurrent acute complicated urinary tract infection with chronic indwelling Reno catheter but awaiting UA/U CX with associated hypotension, hypothermia: We will admit to the PCU to be cautious as BP low initially but improved with IVFs, maintain on monitor, continue aggressive IV fluids cautiously given #2, maintain on IV Unasyn per most recent records from prior admission at tertiary facility with E. coli UTI at that time, awaiting UA, UCX and will alter as needed if not marked appearing, will place warming blanket given hypothermia, chest x-ray not marked appearing however has had aspiration in the past, request director ehs consultation, blood culture x2 pending. #2. Acute Viral Syndrome, COVID-19: Diagnosis at the longterm [facility] noted 01/31/22, rapid antigen here positive, maintain on COVID precautions given still within 10 day timeline, will maintain on oxygen with wean as tolerated to room air, PRN albuterol, HOB, IS parameters w/ pending sputum cultures, respiratory viral panel and urine antigens, will obtain D-dimer, procalcitonin, CRP, CPK, Ferritin, LDH, trop and BNP, continue supportive care including q 2 hour turning including prone given no prone bed availability and judicious hydration, closely monitor for worsening status for ARDS and multiorgan failure. Given on room air will defer steroids and IV remedesivir, but if worsens will need to reconsider with reassessment renal function. #3. Acute thrombocytopenia on chronic: Admission platelets 30, prior noted 11/18/2021 117, will avoid any chemoprophylaxis, trend closely and if necessary will administer platelets, likely secondary to acute infectious presentation. #4. Acute kidney injury: Admission BUN/creatinine 64/1.94, most recent noted baseline following her prolonged admission in November 2021 noted on 11/26/2021 BUN/creatinine 12/0.71, likely secondary to acute presentation #1 and possible UTI (awaiting UA/UCx), patient previously had complicated SHERIDAN secondary to significant stool load with obstructive presentation with hydronephrosis noted at outside facility, hold nephrotoxic medications, judiciously hydrate, if no improvement would obtain renal ultrasound and FeNa. UA, UCx pending as patient prior had enteroccocal UTI associated with chronic indwelling reno. Reno changed in the ED. #5. Relapsing remitting multiple sclerosis wheelchair bound w/ neurogenic na l/bladder with chronic indwelling Reno catheter and issues with chronic constipation: UA, UCX pending as patient did previously have significant UTI with chronic indwelling Reno catheter. Will preemptively place on IV Unasyn pending UA/UCx and de-escalate off if UA not marked. #6. History of chronic DVT: Patient with chronic DVT right IJ and right axillary vein, not on OAC for chronic clot #7. Chew tobacco: Encourage to tobacco cessation #8. Hypertension: Given hypotension will defer. #9. DVT prophylaxis: SCDs, defer any chemoprophylaxis given thrombocytopenia. #10. CODE STATUS: Full code. Charges/Coding Visit Charges Inpatient E&M: 38911 Init Hosp L3
[2022-02-05] MEDS: 0.9% Normal Saline 1,000 ML 1000 ML IV ×2 (02:51→03:36)
--- NOTE | 2022-02-05 03:02 | ED.RN ---
pt presents to ED with chronic reno
[2022-02-05 03:10] LABS: Bacteria 0 SEEN /hpf (None Seen); Mucous, Urine 0 SEEN /hpf (<or=2+); Red Blood Cells-Urine 0 SEEN /hpf (0-5); Squamous Epithelial Cells - UA 0 SEEN /hpf (5-10)
--- NOTE | 2022-02-05 03:38 | ED.RN ---
kyle real applied. transported to PCU with patient.
[2022-02-05 03:46] LABS: Color, Urine Brown (Yellow); Glucose, Dipstick Normal (Normal); Ketone-Dipstick Negative (Negative); Leukocyte Esterase-Dipstick 500 /ul (Negative); Nitrite-Dipstick Negative (Negative); Occult Blood-Urine 150 /ul (Negative); Protein-Dipstick 100 mg/dl (Negative); Urine Bilirubin Dipstick Negative (Negative); Urine Clarity Cloudy (Clear); Urine Urobilinogen Normal (Normal)
[2022-02-05 03:47] LABS: White Blood Cells >100 SEEN /hpf (0-5)
[2022-02-05 03:54] LABS: D-Dimer Quantitative (DVT/PE) 0.75 FEU/ug/m (0.27-0.49)
[2022-02-05 04:02] LABS: BNP,B-Type NATRIURETIC PEPTIDE 16.9 pg/mL (0-100)
[2022-02-05 04:11] LABS: Procalcitonin 1.22 ng/mL (0.00-0.09)
[2022-02-05 04:14] LABS: Ferritin 613 ng/mL (8-252); LDH 165 U/L (84-246); Lactic Acid 1.3 mmol/L (0.4-1.9); Troponin-I HS 4 pg/mL (3.0-54.0)
--- NOTE | 2022-02-05 04:39 | VDLE_ITS ---
Reason For Study: Pain RIGHT LEFT GSV is normal. GSV is normal. CFV is compressible, spontaneous, phasic, CFV is compressible, spontaneous, phasic, competent and demonstrates normal competent, and demonstrates normal augmentation. augmentation. FV is compressible, spontaneous, phasic, FV is compressible, spontaneous, phasic, competent and demonstrates normal competent and demonstrates normal augmentation. augmentation. POP V is compressible, spontaneous, phasic, POP V is compressible, spontaneous, phasic, competent and demonstrates normal competent and demonstrates normal augmentation. augmentation. T/P Trunk is compressible. T/P Trunk is compressible. PTV is compressible. PTV is compressible. RT PerV is compressible. LT PerV is compressible. Procedure This is a venous duplex using B-mode, color flow and spectral Doppler. Exam performed portable in patient room. The exam was abbreviated due to the COVID 19 protocol. A preliminary report was called and/or faxed to Katherine WOMACK. VL/Venous Duplex US - [place] Extrem Interpretation Summary No evidence for acute deep venous thrombosis bilateral lower extremities with p atent and compressible bilateral great saphenous veins. Abbreviated COVID-19 protocol uti lized Ordering Physician: Beata Leonard Referring Physician: Yoel Hope Performed By: Akosua Nayak, JAYASHREE, RVT
[2022-02-05] MEDS: 0.9% Normal Saline 1,000 ML 125 ML IV ×2 (05:42→12:24)
--- NOTE | 2022-02-05 07:54 | PCM.PN.HOSP ---
Subjective Subjective Follow-up for altered mental status Objective Data Objective Data Vital Signs: Vital Signs Temp Pulse Resp BP Pulse Ox 95.8 F L 81 16 123/96 H 97 02/05/22 04:20 02/05/22 06:28 02/05/22 04:20 02/05/22 04:20 02/05/22 04:20 Oxygen Delivery Method Room Air Weight: 102 lb 4.712 oz Body Mass Index (BMI) 17.5 Intake & Output: Intake and Output for Last 24 Hours 02/03/22 02/04/22 02/05/22 23:59 23:59 23:59 Intake Total 1862 / 1862 Output Total 600 / 600 Balance 1262 / 1262 Lab / Micro Data Result Diagrams: 02/05/22 01:00 02/05/22 01:00 Labs: Laboratory Results - last 24 hr 02/05/22 01:00: WBC 6.9, RBC 4.52, Hgb 12.7, Hct 39.9, MCV 88.3, MCH 28.1, MCHC 31.8 L, RDW Std Deviation 47.7 H, RDW Coeff of Elizabeth 15.0 H, Plt Count 30 L*, Immature Gran % (Auto) 0.300, Neut % (Auto) 73.8 H, Lymph % (Auto) 16.2 L, [place] % (Auto) 9.6, Eos % (Auto) 0.0, Baso % (Auto) 0.1, Absolute Neuts (auto) 5.1, Absolute Lymphs (auto) 1.11, Nucleated RBC % 0, Differential Comment SCANNED, Diff Path Review January02/05/22 01:00: PT 14.3, INR 1.1, APTT 29.8 02/05/22 01:00: Sodium 139, Potassium 3.9, Chloride 104, Carbon Dioxide 28.0, Anion Gap 7, BUN 64 H, Creatinine 1.94 H, Estim Creat Clear Calc 22.86, Est GFR (MDRD) Af Amer 34 L, Est GFR (MDRD) Non-Af 28 L, BUN/Creatinine Ratio 33.0 H, Glucose 133 H, Calcium 9.1, Total Bilirubin 0.90, AST 32, ALT 27, Alkaline Phosphatase 63, Total Protein 7.8, Albumin 2.8 L, Globulin 5.0 H, Albumin/Globulin Ratio 0.6 L 02/05/22 01:00: Lactic Acid Cancelled 02/05/22 03:00: Urine Color Brown, Urine Clarity Cloudy, Urine pH 7.0, Ur Specific [place] 1.010, Urine Protein 100 H, Urine Glucose (UA) Normal, Urine Ketones Negative, Urine Occult Blood 150 H, Urine Nitrite Negative, Urine Bilirubin Negative, Urine Urobilinogen Normal, Ur Leukocyte Esterase 500 H, Urine RBC 0 SEEN, Urine WBC >100 SEEN, Ur Squamous Epith Cells 0 SEEN, Urine Bacteria 0 SEEN, Urine Mucus 0 SEEN 02/05/22 03:10: Lactic Acid 1.3 02/05/22 03:10: D-Dimer Quant (PE/DVT) 0.75 H* 02/05/22 03:10: Ferritin 613 H, Lactate Dehydrogenase 165, Troponin I High Sens 4, C-React Prot Ext Range 254.00 H 02/05/22 03:10: B-Natriuretic Peptide 16.9 02/05/22 03:10: Procalcitonin 1.22 H Micro: Microbiology 02/05/22 03:00 Urine Catheter - Lucia Legionella Antigen - Final 02/05/22 03:00 Urine Catheter - Lucia Streptococcus pneumoniae Antigen (M - Final 02/05/22 01:30 Nasal Secretion SARS-CoV-2 & FLU Antigen (Rapid) - Final SARS-CoV-2 (COVID 19) Radiography Diagnostic Testing: Radiology Impression Brain CT 02/05/22 01:08 IMPRESSION: Chronic involutional changes of the brain. Electronically Signed: Narciso Pickard DO at 2:32 EDT Reading Location ID and State: [address] [place] [address] Tel , Service support , Chest X-Ray 02/05/22 01:08 IMPRESSION: Normal x-ray examination of the chest. Electronically Signed: Narciso Pickard DO at 1:55 EDT Reading Location ID and State: [facility] / [place] Tel , Service support , Physical Exam Narrative Patient has chronic MS with physical and mental debilitation. History completely unobtainable. She denies cough, shortness of breath but hard to believe as there is question of comprehension General: Awake, unable to answer questions of orientation. HEENT: Atraumatic, PERRLA, EOMI, Normocephalic Oral: No Gingival or Mucosal Lesions/ Ulcerations Neck: Supple, No JVD, Negative Carotid Bruits Lungs: Air entry diminished in bilateral lung bases. No crepitation/rhonchi Cardiovascular: Sinus rhythm, normal S1, Normal S2, No murmurs Abdomen: Bowel Sounds Present, Soft, Non Tender, Non-Distended : Indwelling Lucia catheter, no renal angle tenderness. No suprapubic tenderness. Extremities: No edema, Capillary Refill Less than 3 Seconds Skin: Dry skin Musculoskeletal: Wheelchair/bedbound. Lower extremity with contracture. Neurological: Bilateral lower extremity chronic weakness at major joints with contracture, higher mental function compromised, complete neuro exam unobtainable Psych/Mental Status: Flat affect Assessment & Plan Assessment/Plan (1) Acute encephalopathy: PLAN: The patient is a 56 y/o F was admitted from [facility] for acting out, repeatedly saying I am scared consistent with altered mental status/encephalopathy. Patient blood pressure was low . CT head no acute intracranial abnormality but chronic involutional changes. #1. Acute Encephalopathy, Multifactorial, Infectious/Metabolic: Patient has chronic indwelling Lucia catheter therefore UA not helpful. UA LE 500, squamous epithelial cells 0, WBC more than 100, bacteria 0. Previous medical record shows patient had E. coli. Patient empirically on IV Unasyn 2. Acute viral syndrome, COVID-19: Patient diagnosed in [facility] 01/31, rapid SARS-CoV-2 antigen positive. CRP elevated. Procalcitonin 1.22, less than 2 therefore less chance/risk for progression to severe sepsis/septic shock. Consult ID. Inflammatory markers ferritin, CRP and D-dimer are elevated. Chest x-ray individually reviewed which shows no significant consolidation or infiltrate. No significant change from previous chest x-ray of 11/18/2021 COVID-19 PCR ordered. ID consult for further opinion #3. Acute severe thrombocytopenia on chronic thrombocytopenia: Admission platelets 30, prior noted 11/18/2021 117. Monitor CBC. Probably due to infection #4. Acute kidney injury: Admission BUN/creatinine 64/1.94. Prior BUN/creatinine 12/0.71. Patient on IV fluid. Monitor kidney function #5. Relapsing remitting multiple sclerosis complicated with neurogenic bladder, chronic indwelling Lucia catheter, low functional capacity and chronic constipation: Patient empirically on IV Unasyn. #6. History of chronic DVT: Patient with chronic DVT right IJ and right axillary vein, not on oral anticoagulant #7. Chew tobacco/nicotine dependence: Encourage to tobacco cessation #8. Hypertension: Hold antihypertensive medication #9. DVT prophylaxis: SCDs. Pharmacological prophylaxis contraindicated #10. CODE STATUS: Full code. Charges/Coding Visit Charges Inpatient E&M: 50122 Subs Hosp L2
[2022-02-05] MEDS: Pantoprazole Sodium 40 MG Tablet PO (10:28)
[2022-02-05] MEDS: Cholecalciferol (VIT D3) 25 MCG TABLET (1,000 UNITS) 50 MCG PO (10:28)
[2022-02-05] MEDS: Multivitamins,Ther W-Minerals Tablet 1 TABLET PO (10:28)
[2022-02-05] MEDS: Polyethylene Glycol 3350 17 GM PACKET PO (10:29)
[2022-02-05] MEDS: Baclofen 10 MG Tablet PO ×2 (14:02→21:03)
[2022-02-05] MEDS: Mirtazapine 15 MG Tablet PO (21:03)
[2022-02-05] MEDS: Senna Tablet 1 TABLET PO (21:03)
[2022-02-05] MEDS: 0.9% Saline Lock 10 ML Syringe IV (21:05)
[2022-02-05] MEDS: Acetaminophen 325 MG Tablet 650 MG PO (21:06)
[2022-02-06] VITALS (10 sets, daily range): BP systolic 117–150; BP diastolic 68–88; PULSE 59–96; RESP 16–20; TEMP 36.6–37.2; O2SAT 96–99
[2022-02-06] MEDS: 0.9% Saline Lock 10 ML Syringe IV ×3 (03:38→20:28)
[2022-02-06] MEDS: Baclofen 10 MG Tablet PO ×3 (05:26→20:22)
[2022-02-06] MEDS: Cholecalciferol (VIT D3) 25 MCG TABLET (1,000 UNITS) 50 MCG PO (08:31)
[2022-02-06] MEDS: Multivitamins,Ther W-Minerals Tablet 1 TABLET PO (08:31)
[2022-02-06] MEDS: Pantoprazole Sodium 40 MG Tablet PO (08:32)
[2022-02-06] MEDS: Polyethylene Glycol 3350 17 GM PACKET PO (08:32)
--- NOTE | 2022-02-06 09:06 | CASEMGMT ---
XAVIER spoke with Sonja at [facility] and patient is okay to return whenever she is ready. Patient is currently at [facility] on pending Medicaid. XAVIER faxed updates to [facility]. Dawna Wu [employer] JUAN R
[2022-02-06 09:18] LABS: Absolute Neutrophil Count 4.6 X10^3/uL (2.0-7.7); Basophil# 0.02 X10^3/uL; Basophil% 0.3 % (0-1); Eosinophil# 0.02 X10^3/uL; Eosinophils% 0.3 % (0-5); Hematocrit 37.2 % (37-47); Hemoglobin 11.6 g/dL (12.0-15.0); Lymphocyte % 22.8 % (19-41); Mean Corp Hgb Conc 31.2 g/dL (32-36); Mean Corpuscular Hgb 27.9 pg (27.0-32.0); Mean Corpuscular Volume 89.4 fL (81-99); Monocyte# 0.77 X10^3/uL; NRBC Flagged by Analyzer 0 % (0-5); Neutrophil % 65.3 % (47-70); POSITIVE COUNT YES; Platelet Count 88 K/mm3 (150-450); RBC Distribution Width CV 14.8 % (11.6-14.6); RBC Distribution Width SD 48.2 fl (35.1-43.9); Red Blood Count 4.16 M/mm3 (4.2-5.4)
[2022-02-06 09:22] LABS: Differential Indicated SCAN CRITERIA MET
[2022-02-06 09:46] LABS: Anion Gap 8 (5-15); BUN 33 mg/dL (7-18); BUN/Creat Ratio 61.6 RATIO (10-20); Calcium,Total 8.7 mg/dL (8.5-10.1); Chloride 112 mmol/L (98-107); Creatinine, Serum 0.54 mg/dL (0.55-1.02); EST Glomerular Filtration Rate 125 mL/min (>60); Est Glom Filt Rate - Afr Amer 152 mL/min (>60); Estimated Creatinine Clearance 88.27 ml/min; Glucose 72 mg/dL (74-106); Potassium 3.6 mmol/L (3.5-5.1); Sodium Level 144 mmol/L (136-145)
--- NOTE | 2022-02-06 11:34 | PCM.PN.HOSP ---
Subjective Subjective Denies any significant respiratory symptoms, has a mild cough. She is not short of breath and is not requiring oxygen. She still is little bit confused though per nursing seems to be a little bit improved from admission Objective Data Objective Data Vital Signs: Vital Signs Temp Pulse Resp BP Pulse Ox 98.5 F 78 17 150/84 H 96 02/06/22 08:28 02/06/22 08:28 02/06/22 08:28 02/06/22 08:28 02/06/22 08:41 Oxygen Delivery Method Room Air Weight: 104 lb 11.513 oz Body Mass Index (BMI) 17.5 Intake & Output: Intake and Output for Last 24 Hours 02/05/22 02/06/22 02/07/22 03:59 03:59 03:59 Intake Total 750 / 750 2997.67 / 2997.67 112 / 112 Output Total 2100 / 2100 Balance 750 / 750 897.67 / 897.67 112 / 112 Lab / Micro Data Result Diagrams: 02/06/22 08:50 02/06/22 08:50 Labs: Laboratory Results - last 24 hr 02/05/22 03:00: Urine Color Brown, Urine Clarity Cloudy, Urine pH 7.0, Ur Specific [place] 1.010, Urine Protein 100 H, Urine Glucose (UA) Normal, Urine Ketones Negative, Urine Occult Blood 150 H, Urine Nitrite Negative, Urine Bilirubin Negative, Urine Urobilinogen Normal, Ur Leukocyte Esterase 500 H, Urine RBC 0 SEEN, Urine WBC >100 SEEN, Ur Squamous Epith Cells 0 SEEN, Urine Bacteria 0 SEEN, Urine Mucus 0 SEEN 02/05/22 14:00: COVID-19 ([facility]) Detected 02/06/22 08:50: WBC 7.0, RBC 4.16 L, Hgb 11.6 L, Hct 37.2, MCV 89.4, MCH 27.9, MCHC 31.2 L, RDW Std Deviation 48.2 H, RDW Coeff of Elizabeth 14.8 H, Plt Count 88 L, Immature Gran % (Auto) 0.300, Neut % (Auto) 65.3, Lymph % (Auto) 22.8, [place] % (Auto) 11.0 H, Eos % (Auto) 0.3, Baso % (Auto) 0.3, Absolute Neuts (auto) 4.6, Absolute Lymphs (auto) 1.60, Nucleated RBC % 0 02/06/22 08:50: Sodium 144, Potassium 3.6, Chloride 112 H, Carbon Dioxide 24.0, Anion Gap 8, BUN 33 H, Creatinine 0.54 L, Estim Creat Clear Calc 88.27, Est GFR (MDRD) Af Amer 152, Est GFR (MDRD) Non-Af 125, BUN/Creatinine Ratio 61.6 H, Glucose 72 L, Calcium 8.7 Micro: Microbiology 02/05/22 03:00 Urine Catheter - Lucia Urine Culture - Preliminary Gram negative charla 02/05/22 03:15 Mucosa - Nasopharyngeal Respiratory Panel (PCR) - Final 02/05/22 03:00 Urine Catheter - Lucia Legionella Antigen - Final 02/05/22 03:00 Urine Catheter - Lucia Streptococcus pneumoniae Antigen (M - Final 02/05/22 01:30 Nasal Secretion SARS-CoV-2 & FLU Antigen (Rapid) - Final SARS-CoV-2 (COVID 19) Radiography Diagnostic Testing: Radiology Impression Venous Doppler Study 02/05/22 04:39 Interpretation Summary No evidence for acute deep venous thrombosis bilateral lower extremities with patent and compressible bilateral great saphenous veins. Abbreviated COVID-19 protocol utilized Ordering Physician: Beata Leonard Referring Physician: Yoel Hope Performed By: Akosua Nayak, JEREMIASCS, RVT Physical Exam Const alert and no apparent distress General Appearance: cooperative Orientation / Consciousness: confused HEENT normocephalic and moist oral mucous membranes Eyes EOMs intact bilaterally and conjunctivae normal Neck supple and no JVD Resp normal respiratory effort, no retractions and no use of accessory muscles Auscultation: diminished lung sounds; Negative for crackles, rales, rhonchi or wheezes Cardio regular rate, regular rhythm, S1 normal heart sound, S2 normal heart sound and no murmurs GI soft to palpation, non-tender and non-distended; Negative for hepatosplenomegaly Extremity no clubbing, cyanosis or edema Skin no rashes or lesions noted Neuro no focal motor deficits and no sensory deficits noted Psych affect normal Appearance: appropriate Assessment & Plan Assessment/Plan (1) Acute encephalopathy: PLAN: #1. Acute Encephalopathy, Multifactorial, Infectious/Metabolic: Patient has chronic indwelling Lucia catheter therefore UA not helpful. UA LE 500, squamous epithelial cells 0, WBC more than 100, bacteria 0. Previous medical record shows patient had E. coli. Patient empirically on IV Unasyn 02/06/2022: Continue with Unasyn she is not requiring any active treatment for COVID at this time. Urine culture is pending, once her speciation and sensitivities can narrow antibiotics and replace Lucia 2. Acute viral syndrome, COVID-19: Patient diagnosed in [facility] 01/31, rapid SARS-CoV-2 antigen positive. CRP elevated. Procalcitonin 1.22, less than 2 therefore less chance/risk for progression to severe sepsis/septic shock. Consult ID. Inflammatory markers ferritin, CRP and D-dimer are elevated. Chest x-ray individually reviewed which shows no significant consolidation or infiltrate. No significant change from previous chest x-ray of 11/18/2021 COVID-19 PCR ordered. ID consult for further opinion 02/06/2022: She is essentially asymptomatic from her COVID once encephalopathy improves can likely return to the snf. If she does develop a need for oxygen can start her on steroids #3. Acute severe thrombocytopenia on chronic thrombocytopenia: Admission platelets 30, prior noted 11/18/2021 117. Monitor CBC. Probably due to infection 02/06/2022: Repeat platelets of 88, will continue to monitor #4. Acute kidney injury: Admission BUN/creatinine 64/1.94. Prior BUN/creatinine 12/0.71. Patient on IV fluid. Monitor kidney function 02/06/2022: Resolved #5. Relapsing remitting multiple sclerosis complicated with neurogenic bladder, chronic indwelling Lucia catheter, low functional capacity and chronic constipation: Patient empirically on IV Unasyn. #6. History of chronic DVT: Patient with chronic DVT right IJ and right axillary vein, not on oral anticoagulant #7. Chew tobacco/nicotine dependence: Encourage to tobacco cessation #8. Hypertension: Hold antihypertensive medication DVT: SCDs. Pharmacological prophylaxis contraindicated Charges/Coding Visit Charges Inpatient E&M: 32707 Subs Hosp L2
[2022-02-06 11:46] LABS: Platelet Estimate MOD DEC (ADEQ); Red Cell Morphology NORM C+C NORMAL (NORM C&C)
[2022-02-06 13:37] LABS: Pathologist Review Reviewed
[2022-02-06] MEDS: Mirtazapine 15 MG Tablet PO (20:21)
[2022-02-06] MEDS: Senna Tablet 1 TABLET PO (20:21)
[2022-02-06] MEDS: Acetaminophen 325 MG Tablet 650 MG PO (20:22)
[2022-02-07] VITALS (11 sets, daily range): BP systolic 119–143; BP diastolic 75–86; PULSE 65–90; RESP 14–20; TEMP 36.4–37.1; O2SAT 96–100
[2022-02-07] MEDS: Baclofen 10 MG Tablet PO ×3 (05:25→21:07)
[2022-02-07 06:50] LABS: Absolute Lymphocyte Count 1.32 X10^3/uL (0.83-4.51); Absolute Neutrophil Count 3.1 X10^3/uL (2.0-7.7); Basophil# 0.02 X10^3/uL; Basophil% 0.4 % (0-1); Eosinophil# 0.05 X10^3/uL; Hematocrit 33.4 % (37-47); Hemoglobin 10.8 g/dL (12.0-15.0); Lymphocyte # 1.32 X10^3/ul (0.83-4.51); Lymphocyte % 26.5 % (19-41); Mean Corp Hgb Conc 32.3 g/dL (32-36); Mean Corpuscular Hgb 27.7 pg (27.0-32.0); Mean Corpuscular Volume 85.6 fL (81-99); Mean Platelet Vol. 13.7 fl (6.2-12.0); Monocyte# 0.48 X10^3/uL; Monocyte% 9.6 % (0-10); NRBC Flagged by Analyzer 0 % (0-5); Neutrophil % 62.3 % (47-70); POSITIVE MORPHOLOGY YES; Platelet Count 122 K/mm3 (150-450); RBC Distribution Width CV 14.7 % (11.6-14.6); RBC Distribution Width SD 45.6 fl (35.1-43.9)
[2022-02-07 06:51] LABS: Differential Indicated SCAN CRITERIA MET
[2022-02-07 07:13] LABS: Anion Gap 7 (5-15); BUN 23 mg/dL (7-18); BUN/Creat Ratio 68.7 RATIO (10-20); Calcium,Total 8.2 mg/dL (8.5-10.1); Chloride 108 mmol/L (98-107); Creatinine, Serum 0.34 mg/dL (0.55-1.02); EST Glomerular Filtration Rate 216 mL/min (>60); Est Glom Filt Rate - Afr Amer 261 mL/min (>60); Estimated Creatinine Clearance 140.19 ml/min; Glucose 87 mg/dL (74-106); Potassium 2.8 mmol/L (3.5-5.1); Sodium Level 141 mmol/L (136-145)
[2022-02-07 07:19] LABS: Differential Comment SCANNED
[2022-02-07 08:07] LABS: Magnesium 1.5 mg/dL (1.6-2.6); Phosphorus 1.8 mg/dL (2.5-4.9)
[2022-02-07] MEDS: Pantoprazole Sodium 40 MG Tablet PO (10:44)
[2022-02-07] MEDS: Polyethylene Glycol 3350 17 GM PACKET PO (10:44)
[2022-02-07] MEDS: Multivitamins,Ther W-Minerals Tablet 1 TABLET PO (10:44)
[2022-02-07] MEDS: Cholecalciferol (VIT D3) 25 MCG TABLET (1,000 UNITS) 50 MCG PO (10:44)
[2022-02-07] MEDS: Potassium Chloride Oral Tablet 20 MEQ 40 MEQ PO (11:26)
--- NOTE | 2022-02-07 15:26 | PN.HOSP_ITS ---
Subjective Subjective Doing much better today, she still confused which she says is normal for her and she hates it. She is much more alert and interactive today Objective Data Objective Data Vital Signs: Vital Signs Temp Pulse Resp BP Pulse Ox 98.2 F 66 16 143/85 H 100 02/07/22 10:41 02/07/22 14:57 02/07/22 10:41 02/07/22 10:41 02/07/22 10:41 Oxygen Delivery Method Room Air Weight: 104 lb 11.513 oz Body Mass Index (BMI) 17.5 Intake & Output: Intake and Output for Last 24 Hours 02/06/22 02/07/22 02/08/22 03:59 03:59 03:59 Intake Total 2997.67 / 2997.67 1004 / 1004 826 / 826 Output Total 2100 / 2100 825 / 825 825 / 825 Balance 897.67 / 897.67 179 / 179 Lab / Micro Data Result Diagrams: 02/07/22 06:35 02/07/22 06:35 Labs: Laboratory Results - last 24 hr 02/07/22 06:35: WBC 5.0, RBC 3.90 L, Hgb 10.8 L, Hct 33.4 L, MCV 85.6, MCH 27.7, MCHC 32.3, RDW Std Deviation 45.6 H, RDW Coeff of Elizabeth 14.7 H, Plt Count 122 L, MPV 13.7 H, Immature Gran % (Auto) 0.200, Neut % (Auto) 62.3, Lymph % (Auto) 26.5, [place] % (Auto) 9.6, Eos % (Auto) 1.0, Baso % (Auto) 0.4, Absolute Neuts (auto) 3.1, Absolute Lymphs (auto) 1.32, Nucleated RBC % 0, Differential Comment SCANNED 02/07/22 06:35: Sodium 141, Potassium 2.8 L, Chloride 108 H, Carbon Dioxide 26.0, Anion Gap 7, BUN 23 H, Creatinine 0.34 L, Estim Creat Clear Calc 140.19, Est GFR (MDRD) Af Amer 261, Est GFR (MDRD) Non-Af 216, BUN/Creatinine Ratio 68.7 H, Glucose 87, Calcium 8.2 L 02/07/22 06:35: Phosphorus 1.8 L, Magnesium 1.5 L Micro: Microbiology 02/05/22 03:00 Urine Catheter - Lucia Urine Culture - Final Proteus mirabilis 02/05/22 01:15 Blood Culture (Wb) - Arm Right Blood Culture - Preliminary No growth in 48 hours. 02/05/22 01:00 Blood Culture (Wb) - Arm Right Blood Culture - Preliminary No growth in 48 hours. 02/05/22 03:15 Mucosa - Nasopharyngeal Respiratory Panel (PCR) - Final 02/05/22 03:00 Urine Catheter - Lucia Legionella Antigen - Final 02/05/22 03:00 Urine Catheter - Lucia Streptococcus pneumoniae Antigen (M - Final 02/05/22 01:30 Nasal Secretion SARS-CoV-2 & FLU Antigen (Rapid) - Final SARS-CoV-2 (COVID 19) Physical Exam Const alert and no apparent distress General Appearance: cooperative Orientation / Consciousness: confused HEENT normocephalic and moist oral mucous membranes Eyes EOMs intact bilaterally and conjunctivae normal Neck supple and no JVD Resp normal respiratory effort, no retractions and no use of accessory muscles Auscultation: diminished lung sounds; Negative for crackles, rales, rhonchi or wheezes Cardio regular rate, regular rhythm, S1 normal heart sound, S2 normal heart sound and no murmurs GI soft to palpation, non-tender and non-distended; Negative for hepatosplenomegaly Extremity no clubbing, cyanosis or edema Skin no rashes or lesions noted Neuro no focal motor deficits and no sensory deficits noted Psych affect normal Appearance: appropriate Assessment & Plan Assessment/Plan (1) Acute encephalopathy: PLAN: #1. Acute Encephalopathy, Multifactorial, Infectious/Metabolic with Proteus CAU TI: Patient has chronic indwelling Lucia catheter therefore UA not helpful. UA LE 500, squamous epithelial cells 0, WBC more than 100, bacteria 0. Previous medical record shows patient had E. coli. Patient empirically on IV Unasyn 02/06/2022: Continue with Unasyn she is not requiring any active treatment for COVID at this time. Urine culture is pending, once her speciation and sensitivities can narrow antibiotics and replace Lucia 02/07/2022: UA comes back positive with Proteus that is sensitive to Unasyn and also to Rocephin, will swap out her indwelling catheter 2. Acute viral syndrome, COVID-19: [facility] in SN[facility], rapid SARS-CoV-2 antigen positive. CRP elevated. Procalcitonin 1.22, less than 2 therefore less chance/risk for progression to severe sepsis/septic shock. Con sult ID. Inflammatory markers ferritin, CRP and D-dimer are elevated. Chest x- ray individually reviewed which shows no significant consolidation or infiltrate. No significant change from previous chest x-ray of 11/18/2021 COVID-19 PCR ordered. ID consult for further opinion 02/06/2022: She is essentially asymptomatic from her COVID once encephalopathy improves can likely return to the [place] [facility]. If she does develop a need for oxygen can start her on steroids 02/07/2022: She is remaining on room air when she reaches 10 days from her positive test she can be out of precautions #3. Acute severe thrombocytopenia on chronic thrombocytopenia: Admission platelets 30, prior noted 11/18/2021 117. Monitor CBC. Probably due to infection 02/06/2022: Repeat platelets of 88, will continue to monitor 02/07/2022: Her thrombocytopenia is likely reactionary to her infection as it is improving #4. Acute kidney injury: Admission BUN/creatinine 64/1.94. Prior BUN/creatinine 12/0.71. Patient on IV fluid. Monitor kidney function 02/06/2022: Resolved #5. Relapsing remitting multiple sclerosis complicated with neurogenic bladder, chronic indwelling Lucia catheter, low functional capacity and chronic constipation: Patient empirically on IV Unasyn. #6. History of chronic DVT: Patient with chronic DVT right IJ and right axillary vein, not on oral anticoagulant #7. Chew tobacco/nicotine dependence: Encourage to tobacco cessation #8. Hypertension: Hold antihypertensive medication DVT: SCDs Charges/Coding Visit Charges Inpatient E&M: 17671 Subs Hosp L2
[2022-02-07] MEDS: Mirtazapine 15 MG Tablet PO (21:07)
[2022-02-07] MEDS: Senna Tablet 1 TABLET PO (21:07)
[2022-02-08] VITALS (7 sets, daily range): BP systolic 121–132; BP diastolic 80–82; PULSE 65–75; RESP 15–16; TEMP 37.1–37.2; O2SAT 98–99
[2022-02-08] MEDS: Baclofen 10 MG Tablet PO ×2 (05:28→13:35)
[2022-02-08 06:04] LABS: Absolute Lymphocyte Count 1.72 X10^3/uL (0.83-4.51); Absolute Neutrophil Count 4.2 X10^3/uL (2.0-7.7); Basophil# 0.03 X10^3/uL; Basophil% 0.4 % (0-1); Eosinophil# 0.16 X10^3/uL; Eosinophils% 2.3 % (0-5); Hematocrit 32.8 % (37-47); Hemoglobin 10.7 g/dL (12.0-15.0); Lymphocyte # 1.72 X10^3/ul (0.83-4.51); Lymphocyte % 24.5 % (19-41); Mean Corp Hgb Conc 32.6 g/dL (32-36); Mean Corpuscular Hgb 27.8 pg (27.0-32.0); Mean Corpuscular Volume 85.2 fL (81-99); Mean Platelet Vol. 13.1 fl (6.2-12.0); Monocyte# 0.87 X10^3/uL; Monocyte% 12.4 % (0-10); NRBC Flagged by Analyzer 0 % (0-5); Neutrophil # 4.24 X10^3/uL (2.7-7.7); Neutrophil % 60.3 % (47-70); Platelet Count 198 K/mm3 (150-450); Red Blood Count 3.85 M/mm3 (4.2-5.4)
[2022-02-08 06:48] LABS: Anion Gap 6 (5-15); BUN 15 mg/dL (7-18); BUN/Creat Ratio 45.3 RATIO (10-20); Chloride 110 mmol/L (98-107); Creatinine, Serum 0.33 mg/dL (0.55-1.02); EST Glomerular Filtration Rate 219 mL/min (>60); Est Glom Filt Rate - Afr Amer 265 mL/min (>60); Estimated Creatinine Clearance 143.22 ml/min; Glucose 97 mg/dL (74-106); Magnesium 1.7 mg/dL (1.6-2.6); Potassium 3.6 mmol/L (3.5-5.1); Sodium Level 143 mmol/L (136-145)
[2022-02-08] MEDS: Pantoprazole Sodium 40 MG Tablet PO (09:23)
[2022-02-08] MEDS: Multivitamins,Ther W-Minerals Tablet 1 TABLET PO (09:23)
[2022-02-08] MEDS: Cholecalciferol (VIT D3) 25 MCG TABLET (1,000 UNITS) 50 MCG PO (09:23)
[2022-02-08] MEDS: Polyethylene Glycol 3350 17 GM PACKET PO (09:24)
--- NOTE | 2022-02-08 09:48 | CASEMGMT ---
XAVIER faxed updates to [facility]. Per physician patient is ready for discharge today. XAVIER will notify [place]. Dawna Wu MSW JUAN R
--- NOTE | 2022-02-08 10:01 | PCM.TXEXTCAR ---
Diet 02/05/22 03:59 Diet: Regular - General Food consistency:: Mechanical (Minced/Moist) Liquid Consistency:: Regular/Thin Is pt able to select menu?: No Diet Comments: TOTAL FEED IF FULLY ALERT,120ml EE w/meals tid;fort.oatmeal w/B,EPw/L,MCw/D Routine Orders/Code Status Routine Lab Work: CBC and BMP Code Status: Full Code Therapies Physical Therapy: Eval and Treat Occupational Therapy: Eval and Treat Problem/Diagnosis (1) Acute encephalopathy: Status: Acute Allergies/Procedures Done in Hospital Allergies 1,4-diaminobenzene Allergy (Verified 11/18/21 05:00) NEEDS FOLLOW-UP Type of Care/Length of Stay Estimated LOS: Convalescent Care Less Than 30 days Type of Care Needed: Skilled Rehab Potential: Good Prognosis: Good Additional Orders/Day of Discharge Day of Discharge: 02/08/22 Dietary and Speech Recommendations Dietitian Recommendations/Changes: Will continue diet as ordered and will provide 120 ml ensure enlive w/ meals tid and fortified oatmeal w/ breakfast, ensure pudding w/ lunch and magic cup w/ dinner for increased nutrition if consumed. Will attempt to interview pt at time of follow up re: diet, wt hx, etc and make further nutrition interventions as indicated. Discharge Plan Admission Admit Date/Time: 02/05/22 02:49 Attending Provider: Kang Alvarenga Primary Care Provider: Yoel Hope Consulting Providers: Beata Leonard ; Kike López Discharge Orders/Prescriptions Prescriptions: New amoxicillin-pot clavulanate 875-125 mg tablet 1 tab PO BID 7 Days Qty: 14 RF: 0 Continued sennosides 8.6 mg Tablet 8.6 mg PO QHS RF: 0 baclofen 10 mg Tablet 10 mg PO TID RF: 0 pantoprazole 40 mg Tablet,Delayed Release (Dr/Ec) 40 mg PO DAILY RF: 0 mirtazapine 15 mg Tablet 15 mg PO QHS RF: 0 Multiple Vitamin-Minerals Tablet 1 tab PO DAILY RF: 0 polyethylene glycol 3350 [Miralax] 17 gram/dose Powder 17 g PO DAILY RF: 0 Acidophilus Capsule 1 cap PO DAILY RF: 0 cholecalciferol (vitamin D3) 50 mcg (2,000 unit) Tablet 50 mcg PO DAILY RF: 0 Referrals / Follow Up: Yoel Hope MD [Primary Care Provider] - Disposition Disposition (needs filled in before D/C Order can be placed): [facility]
--- NOTE | 2022-02-08 10:40 | CASEMGMT ---
XAVIER called [facility] and notified Sonja that patient will be returning today. XAVIER will keep her updated as XAVIER gets more information. Dawna Wu MSW JUAN R
--- NOTE | 2022-02-08 10:52 | PHA.DC.MR ---
Pharmacy Service has performed discharge medication reconciliation for this patient. The patient's discharge medication list was reviewed for discrepancies and discrepancies were resolved. Home Medications Acidophilus 1 cap PO DAILY 02/05/22 Multiple Vitamin-Minerals 1 tab PO DAILY 02/05/22 baclofen 10 mg PO TID 02/05/22 cholecalciferol (vitamin D3) 50 mcg PO DAILY 02/05/22 mirtazapine 15 mg PO QHS 02/05/22 pantoprazole 40 mg PO DAILY 02/05/22 polyethylene glycol 3350 [Miralax] 17 g PO DAILY 02/05/22 sennosides 8.6 mg PO QHS 02/05/22 amoxicillin-pot clavulanate 1 tab PO BID 7 Days #14 tab 02/08/22
--- NOTE | 2022-02-08 12:58 | CASEMGMT ---
XAVIER faxed orders to [facility]. Patient is getting a medication that runs for 6 hours so XAVIER arranged for moss picker at 530p via cot. XAVIER notified RN, patient's via phone, and Sonja at [facility] via e-mail. All in agreement with discharge plan. Plan: d/c back to [facility] under intermediate level of care. [facility] will transport via cot. Dawna PETE
--- NOTE | 2022-02-08 13:09 | PCM.DC.SUM ---
Providers Date of Admission: 02/05/22 Primary Care Physician: Dr. Yoel Hope MD Consultations 02/05/22 03:58 Consult: Onc/Wound/computer support technician Routine Comment: Reason For Visit: AMS Diagnosis Discharge Diagnosis (1) Acute encephalopathy: Status: Acute Code(s): G93.40 - Encephalopathy, unspecified Medications at Discharge Home Medications Acidophilus 1 cap PO DAILY 02/05/22 Multiple Vitamin-Minerals 1 tab PO DAILY 02/05/22 baclofen 10 mg PO TID 02/05/22 cholecalciferol (vitamin D3) 50 mcg PO DAILY 02/05/22 mirtazapine 15 mg PO QHS 02/05/22 pantoprazole 40 mg PO DAILY 02/05/22 polyethylene glycol 3350 [Miralax] 17 g PO DAILY 02/05/22 sennosides 8.6 mg PO QHS 02/05/22 amoxicillin-pot clavulanate 1 tab PO BID 7 Days #14 tab 02/08/22 Hospital Course Operations None Procedures None Summary of Care Provided Minutes Spent on Discharge: 37 Hospital Course: Per HPI: The patient is a 56 y/o F residing at [facility] w/ PMHx: Relapsing remitting multiple sclerosis wheelchair bound w/ neurogenic bowel/bladder with chronic indwelling Reno catheter and chronic constipation issues, HTN, 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, Anxiety and Depression, Former chew tobacco, Severe protein-calorie malnutrition, recent COVID-19 diagnosis 01/31/22, history of prolonged admission 11/18/21-11/27/21 initially evaluated [facility] but transferred to [facility] secondary to concerns seizure eventually diagnosed w/ acute hypoxia respiratory failure with intubation secondary to aspiration PNA eventually cleared per speech w/ MBS with no aspiration, acute enteroccocal UTI in setting of chronic reno catheter, SHERIDAN felt secondry to stool burden obstruction with bilateral hydronephrosis who now presents to the [facility] ED on 02/05/22 with history of noted significantly low blood pressures at skilled facility as well as change in mental status noting that patient keeps reporting that she is scared unable to provide any other further history which is not her baseline prompting referral to ED for evaluation. Patient of note had been diagnosed on routine testing with COVID 01/31/2022 at facility. Work-up in the ED included T95.7, heart rate 64, BP 74/63, respiratory rate 24, CBC with WC 6.9, hemoglobin 12.7, platelet 30 without significant shift, unremarkable coags, CMP with BUN/creatinine 64/1.94, glucose 133, unremarkable hepatic profile, lactic acid pending chest x-ray with no acute cardiopulmonary findings, Bld Cx x 2 pending per ED, UA/UCx pending upon evaluation, CT brain with chronic involutional changes. In the ED urine appears cloudy and purulent but as noted awaiting labs for confirmation. Discussed with ED physician and will administer IV unasyn based on UCx at [facility] and change catheter to be cautious. Hospital Course: 1. Acute encephalopathy secondary to CAUTI due to Proteus/acute viral syndrome with COVID-19/reactive thrombocytopenia/[id number]-40-uorp-old female from [facility] presents to the hospital with acute encephalopathy. At the SNF she tested positive for COVID however when she came into the hospital she was also found to have a UTI that tested positive for Proteus. She was transition to appropriate antibiotics and her Reno was changed, will plan for 7 more days of oral antibiotics. This led to improvement in her encephalopathy, SHERIDAN, as well as her reactive thrombocytopenia which is both resolved. She does have a baseline of confusion and does appear to be at that baseline currently. As for her COVID, she never required any treatment as she was never hypoxic therefore she was never started on Decadron or remdesivir. She is medically stable to return back to the shelter facility at this time, I discussed this with her and she expressed understanding and would like to go back today if possible. 2. Relapsing remitting multiple sclerosis with neurogenic bladder and a chronic indwelling Reno, history of chronic DVT, nicotine dependence are all chronic medical conditions which complicate her care. Her home medications were continued where appropriate Physical Exam Const alert and no apparent distress General Appearance: cooperative Orientation / Consciousness: confused HEENT normocephalic and moist oral mucous membranes Eyes EOMs intact bilaterally and conjunctivae normal Neck supple and no JVD Resp normal respiratory effort, no retractions and no use of accessory muscles Auscultation: diminished lung sounds; Negative for crackles, rales, rhonchi or wheezes Cardio regular rate, regular rhythm, S1 normal heart sound, S2 normal heart sound and no murmurs GI soft to palpation, non-tender and non-distended; Negative for hepatosplenomegaly Extremity no clubbing, cyanosis or edema Skin no rashes or lesions noted Neuro no focal motor deficits and no sensory deficits noted Psych affect normal Appearance: appropriate Weight / BMI Weight Weight: 103 lb 13.404 oz Body Mass Index (BMI) 17.5 ABG / Lab / Microbiology Data Result Diagrams: 02/08/22 05:20 02/08/22 05:20 Laboratory: Laboratory Results - last 24 hr 02/08/22 05:20: WBC 7.0, RBC 3.85 L, Hgb 10.7 L, Hct 32.8 L, MCV 85.2, MCH 27.8, MCHC 32.6, RDW Std Deviation 47.0 H, RDW Coeff of Elizabeth 15.0 H, Plt Count 198, MPV 13.1 H, Immature Gran % (Auto) 0.100, Neut % (Auto) 60.3, Lymph % (Auto) 24.5, [place] % (Auto) 12.4 H, Eos % (Auto) 2.3, Baso % (Auto) 0.4, Absolute Neuts (auto) 4.2, Absolute Lymphs (auto) 1.72, Nucleated RBC % 0 02/08/22 05:20: Sodium 143, Potassium 3.6, Chloride 110 H, Carbon Dioxide 27.0, Anion Gap 6, BUN 15, Creatinine 0.33 L, Estim Creat Clear Calc 143.22, Est GFR (MDRD) Af Amer 265, Est GFR (MDRD) Non-Af 219, BUN/Creatinine Ratio 45.3 H, Glucose 97, Calcium 8.0 L, Magnesium 1.7 02/08/22 05:20: Phosphorus 2.0 L Microbiology: Microbiology 02/05/22 03:00 Urine Catheter - Reno Urine Culture - Final Proteus mirabilis 02/05/22 01:15 Blood Culture (Wb) - Arm Right Blood Culture - Preliminary No growth in 48 hours. 02/05/22 01:00 Blood Culture (Wb) - Arm Right Blood Culture - Preliminary No growth in 48 hours. 02/05/22 03:15 Mucosa - Nasopharyngeal Respiratory Panel (PCR) - Final 02/05/22 03:00 Urine Catheter - Reno Legionella Antigen - Final 02/05/22 03:00 Urine Catheter - Reno Streptococcus pneumoniae Antigen (M - Final 02/05/22 01:30 Nasal Secretion SARS-CoV-2 & FLU Antigen (Rapid) - Final SARS-CoV-2 (COVID 19) Meaningful Use Info Meaningful Use Diagnoses (Choose all that apply): None applicable Discharge Plan Admission Admit Date/Time: 02/05/22 02:49 Attending Provider: Kang Alvarenga Primary Care Provider: Yoel Hope Consulting Providers: Beata Leonard ; Kike López Discharge Orders/Prescriptions Prescriptions: New amoxicillin-pot clavulanate 875-125 mg tablet 1 tab PO BID 7 Days Qty: 14 RF: 0 Continued sennosides 8.6 mg Tablet 8.6 mg PO QHS RF: 0 baclofen 10 mg Tablet 10 mg PO TID RF: 0 pantoprazole 40 mg Tablet,Delayed Release (Dr/Ec) 40 mg PO DAILY RF: 0 mirtazapine 15 mg Tablet 15 mg PO QHS RF: 0 Multiple Vitamin-Minerals Tablet 1 tab PO DAILY RF: 0 polyethylene glycol 3350 [Miralax] 17 gram/dose Powder 17 g PO DAILY RF: 0 Acidophilus Capsule 1 cap PO DAILY RF: 0 cholecalciferol (vitamin D3) 50 mcg (2,000 unit) Tablet 50 mcg PO DAILY RF: 0 Referrals / Follow Up: Yoel Hope MD [Primary Care Provider] - Disposition Disposition (needs filled in before D/C Order can be placed): Long-Term Facility Charges/Coding Visit Charges Inpatient E&M: 06312 Disch Hosp
--- NOTE | 2022-02-08 15:20 | CHAPLAIN ---
Type of Pastoral Visit ___ Initial Visit ___ Follow-up Visit ___ On-call Visit ___ General Patient Visit ___ Spiritual Assessment ___ Family Conference ___ Bereavement ___ Rapid Response ___ Code Blue _x__ Other (describe below) Pastoral Care Referral From ___ Patient ___ Family ___ Nurse ___ Physician ___ Teacher Hearing Impaired ___ Construction Inspector _x__ Other (describe below) Sacrament/Intervention ___ Active listening ___ Anointing ___ Sabianist ___ Bereavement ___ Communion ___ Denise exploration ___ ___ Life review ___ Prayer ___ Reconciliation ___ Sacrament of Sick ___ Supportive presence ___ Wedding _x__ Other (describe below) Pastoral Comments a visit of spiritual care was requested by someone for this patient; this coffee host asked her RN about the possibility of talking with her over the phone to give support since she is in covid isolation; RN states that patient is [place], is confused, and does not remember what is told to her; no contact with patient at this time due to the circumstances
== END 2022-02-08 18:36 | disposition skilled nursing facility (03) | DRG 698 ==
LOC: ED 01:52 → PCU 05:16
PROVIDERS: Internal Medicine; Admitting Provider Family Medicine; Emergency Provider Emergency Medicine; PCP Family Medicine; Visit Provider Family Medicine
DX: T83.511A Infection and inflammatory reaction due to indwelling urethral catheter, initial encounter (principal); G93.41 Metabolic encephalopathy; U07.1 COVID-19; E43 Unspecified severe protein-calorie malnutrition; K59.2 Neurogenic bowel, not elsewhere classified; N17.9 Acute kidney failure, unspecified; Z68.1 Body mass index [BMI] 19.9 or less, adult; D69.6 Thrombocytopenia, unspecified; G35 Multiple sclerosis; F41.9 Anxiety disorder, unspecified; I10 Essential (primary) hypertension; K59.09 Other constipation; F17.220 Nicotine dependence, chewing tobacco, uncomplicated; B96.4 Proteus (mirabilis) (morganii) as the cause of diseases classified elsewhere; F32.A Depression, unspecified; Z86.718 Personal history of other venous thrombosis and embolism; N31.9 Neuromuscular dysfunction of bladder, unspecified; Z79.899 Other long term (current) drug therapy; Z99.3 Dependence on wheelchair; Y84.6 Urinary catheterization as the cause of abnormal reaction of the patient, or of later complication, without mention of misadventure at the time of the procedure
CPT/HCPCS: 36415; 70450; 71045; 80048; 80053; 81001; 82728; 83605; 83615; 83735; 83880; 84100; 84145; 84484; 85025; 85379; 85610; 85730; 86140; 87040; 87077; 87086; 87088; 87186; 87426; 87428; 87449; 87633; 87635; 92526; 92610; 93970; 99285; J7030; J7050; A4216; J0295; U0003; U0005

== ENCOUNTER 2022-10-04 15:25 | Emergency (ER) | payer OTHER, MEDICAID, SELFPAY ==
[2022-10-04] VITALS (11 sets, daily range): BP systolic 80–132; BP diastolic 64–90; PULSE 70–140; RESP 12–34; TEMP 36.6–37.9; O2SAT 95–99; BMI 17.4
--- NOTE | 2022-10-04 15:51 | EKG12_ITS ---
Test Reason : DYSRHYTHMIA Blood Pressure : / mmHG Vent. Rate : 147 BPM Atrial Rate : 147 BPM P-R Int : 120 ms QRS Dur : 082 ms QT Int : 354 ms P-R-T Axes : 000 -26 072 degrees QTc Int : 554 ms Sinus tachycardia with occasional Premature ventricular complexes Low voltage QRS Inferior infarct , age undetermined Abnormal ECG Confirmed by BOAZ ZIEGLER, TASIA ([id number]), subeditor ZEUS ESPINOZA ([id number]) on 10/06/2022 8:57:22 AM Referred By: ALFREDO Confirmed By:SACHI SANDRA MD
--- NOTE | 2022-10-04 15:55 | RAD_ITS ---
EXAM: XR CHEST, 1 VIEW CLINICAL INDICATION: fever TECHNIQUE: Frontal view of the chest. This report was created using Vserv report generation technology. COMPARISON: 02/05/2022 FINDINGS: LUNGS AND PLEURAL SPACES: Unremarkable. No consolidation or edema. No pneumothorax. No effusion. HEART: Unremarkable. Cardiac silhouette not enlarged. MEDIASTINUM: Central airways and mediastinal contour are unremarkable. BONES/JOINTS: Unremarkable. SOFT TISSUES: Unremarkable. RAD/Chest 1 View (Portable) IMPRESSION: No radiographic evidence of acute cardiopulmonary disease. Electronically Signed: Vito Rodriguez MD at 16:11 EST ,
--- NOTE | 2022-10-04 16:04 | EX.ED.DYSGE1 ---
HPI History of Present Illness Chief Complaint: Mental Status Change Narrative Narrative: 57-year-old female presenting from residential with altered mental status/delirium. She is unable to give a history. She is very tearful and repeatedly states I am sorry. She was found to have a fever here today 100.3 ?F. Apparently per the nursing staff at her facility she has episodes of apnea where she turns blue. PFSH PFS Medical History Anxiety and depression Chronic deep vein thrombosis (DVT) Chronic indwelling Lucia catheter Hypertension Neurogenic bladder Relapsing remitting multiple sclerosis Severe malnutrition Wheelchair bound Home Medications baclofen 10 mg tablet 10 mg PO TID PAIN 02/05/22 [History Last Taken 10/04/22] polyethylene glycol 3350 17 gram/dose oral powder (Miralax) 17 g PO DAILY CONSTIPATION 02/05/22 [History Last Taken 10/04/22] sennosides 8.6 mg tablet 8.6 mg PO QHS CONSTIPATION 02/05/22 [History Last Taken 10/03/22] acetaminophen 500 mg tablet 1,000 mg PO Q8H PRN Pain 10/04/22 [History Last Taken Unknown] cholecalciferol (vitamin D3) 25 mcg (1,000 unit) tablet 50 mcg PO DAILY SUPPLEMENT 10/04/22 [History Last Taken 10/04/22] ibuprofen 200 mg tablet 600 mg PO Q8H PRN Pain 10/04/22 [History Last Taken Unknown] mirtazapine 30 mg tablet 30 mg PO QHS SLEEP 10/04/22 [History Last Taken 10/03/22] multivitamin 1 tab PO DAILY SUPPLEMENT 10/04/22 [History Last Taken 10/04/22] omeprazole 20 mg capsule,delayed release 20 mg PO DAILY GERD 10/04/22 [History Last Taken 10/04/22] ondansetron HCl 4 mg tablet 4 mg PO Q8H PRN Nausea 10/04/22 [History Last Taken Unknown] Allergy/AdvReac Type Severity Reaction Status Date / Time 1,4-diaminobenzene Allergy NEEDS Verified 10/04/22 15:29 FOLLOW-UP Family History Mother Hypertension Father Hypertension Surgical History S/P section S/P hysterectomy Social History housing: residential Smoking Status: Never smoker Smokeless tobacco user: chewing tobacco how long ago did patient quit smoking: Unclear when she quit chew tobacco. counseling given: other alcohol intake: never substance use type: does not use ROS ROS ED Review of Systems ROS Unobtainable: due to mental status EXAM Physical Exam Const Vital Signs: 10/04/22 15:30 10/04/22 15:40 10/04/22 16:54 Temperature 100.3 F H 100.3 F H Temperature Source Temporal Temporal Pulse Rate 104 H 104 H Respiratory Rate 22 H 20 H Respiratory Pattern Blood Pressure 113/86 H 113/86 H Blood Pressure Mean 95 95 Pulse Ox 97 Oxygen Delivery Method Room Air Nasal Cannula Nasal Cannula Oxygen Flow Rate (L/min) 2 2 Fraction of Inspired Oxygen (FIO2) 10/04/22 16:55 10/04/22 17:52 10/04/22 17:52 Temperature 97.8 F 97.8 F 97.8 F Temperature Source Temporal Temporal Temporal Pulse Rate 79 72 71 Respiratory Rate 13 17 19 H Respiratory Pattern Blood Pressure 99/79 80/69 L 80/69 L Blood Pressure Mean 85 72 72 Pulse Ox 95 98 98 Oxygen Delivery Method Nasal Cannula Bi-pap Bi-pap Oxygen Flow Rate (L/min) 2 Fraction of Inspired Oxygen (FIO2) 40 40 10/04/22 17:37 10/04/22 18:21 10/04/22 19:00 Temperature 97.8 F 97.8 F Temperature Source Temporal Temporal Pulse Rate 70 72 82 Respiratory Rate 15 13 14 Respiratory Pattern Blood Pressure 113/84 H 131/90 H Blood Pressure Mean 93 103 Pulse Ox 97 98 95 Oxygen Delivery Method Bi-pap Bi-pap Oxygen Flow Rate (L/min) Fraction of Inspired Oxygen (FIO2) 40 40 40 10/04/22 19:59 10/04/22 20:50 10/04/22 20:00 Temperature 97.8 F 97.8 F Temperature Source Temporal Temporal Pulse Rate 131 H 133 H 130 H Respiratory Rate 20 H 34 H 21 H Respiratory Pattern Tachypnea Blood Pressure 132/64 H 132/64 H Blood Pressure Mean 86 86 Pulse Ox 98 96 99 Oxygen Delivery Method Bi-pap Bi-pap Oxygen Flow Rate (L/min) Fraction of Inspired Oxygen (FIO2) 40 40 40 10/04/22 21:00 Temperature 97.8 F Temperature Source Temporal Pulse Rate 140 H Respiratory Rate 27 H Respiratory Pattern Blood Pressure 129/84 H Blood Pressure Mean 99 Pulse Ox 98 Oxygen Delivery Method Bi-pap Oxygen Flow Rate (L/min) Fraction of Inspired Oxygen (FIO2) 40 Positive well nourished General Appearance ED: NAD; Negative for pallor HEENT Reports dry mucous membranes Negative for trauma or tenderness Mouth ED: Yes dry mucous membranes Mouth: dry mucous membranes Eyes PERRL and EOMs intact bilaterally Chest Wall inspection of chest normal and palpation of chest normal Resp No normal respiratory effort and clear to auscultation bilaterally Auscultation: Negative for rales, rhonchi or wheezes Cardio regular rhythm Rate: tachycardic GI normal to inspection, nondistended, normoactive bowel sounds Back/Spine no CVA tenderness Neuro Sensorium / Orientation: orientation impaired Motor Exam: general weakness Skin General Skin Exam: Negative for jaundice or pallor MDM MDM MDM Narrative Medical decision making narrative: 57-year-old female with altered mental status, tachycardic, tachypneic, febrile at 0.3 ?F. Sepsis work-up was pursued. Patient was given a liter normal saline. She was given 1 g of Tylenol. Patient does have a Lucia catheter which is indwelling and the urine in the Lucia catheter bag is reddish-brown. This does appear to be consistent with a UTI. CBC was obtained to assess white blood cell count which is elevated 860.2. There is a left shift as well. Platelets are abnormal and are low 5 although she has had low platelets in the past. CMP was assessed to assess renal function as a patient is quite tachycardic. Creatinine is acutely elevated today. Patient was given a liter of normal saline initially. She was started on Rocephin 1 g IV. She had a temperature of 100.3 so she was given Tylenol 1 g. Gas did return normal. Chest x-ray my interpretation shows no acute cardiopulmonary process. Radiology persistent agree. Due to altered mental status I did obtain a CT of the brain which is also negative findings. Patient appears to wax and wane and has sometimes when she is apparently apneic. She not having overt seizure-like symptoms. When she opens her eyes will response to questioning she swelled immediately. She does not have any I did attempt to get the patient to [facility] however the hospitalist felt that the patient needed transfer where there is neurology as they there is concerned she might have seizure. I attempted to call [facility] but they are not excepting transfers and will not even sweet pickle maker the phone. I then called [facility] and they were amenable to keeping the patient at their facility. They recommended giving a loading dose of Keppra. Patient did have a drop in her blood pressure and was given a second liter of IV fluids her blood pressure did respond however her heart rate started increasing as well. Obtained an EKG which shows a sinus tachycardia with ventricular rate of 147 bpm. She does not appear to be seizing. I also checked her temperature and she is not febrile. Its unclear what the symptoms are. Other than epic episode she does not require any oxygen. I did have her on BiPAP for short while because she was very confused. I checked the blood glass and this was normal. Patient transferred in stable condition. Impression: 1. UTI with delirium 2. Leukocytosis 3. Thrombocytopenia 4. Seizure-like activity Lab Data Labs: Laboratory Results - last 24 hr 10/04/22 10/04/22 10/04/22 16:12 16:20 16:20 WBC 16.2 H RBC 4.50 Hgb 12.8 Hct 39.9 MCV 88.7 MCH 28.4 MCHC 32.1 RDW Std Deviation 46.9 H RDW Coeff of Elizabeth 14.6 Plt Count 45 L* MPV TNP Immature Gran % (Auto) 0.400 Neut % (Auto) 82.6 H Lymph % (Auto) 6.[address] [place] % (Auto) 9.7 Eos % (Auto) 0.1 Baso % (Auto) 0.4 Absolute Neuts (auto) 13.4 H Absolute Lymphs (auto) 1.10 Nucleated RBC % 0 Differential Comment SCANNED Diff Path Review May foll PT Cancelled INR Cancelled APTT Cancelled Sodium Potassium Chloride Carbon Dioxide Anion Gap BUN Creatinine Estim Creat Clear Calc Est GFR (MDRD) Af Amer Est GFR (MDRD) Non-Af BUN/Creatinine Ratio Glucose Lactic Acid Calcium Total Bilirubin AST ALT Alkaline Phosphatase Troponin I High Sens Total Protein Albumin Globulin Albumin/Globulin Ratio Urine Color Urine Clarity Urine pH Ur Specific [place] Urine Protein Urine Glucose (UA) Urine Ketones Urine Occult Blood Urine Nitrite Urine Bilirubin Urine Urobilinogen Ur Leukocyte Esterase Urine RBC Urine WBC Ur Squamous Epith Cells Urine Bacteria Urine Mucus POC Glucose 115 H 10/04/22 10/04/22 10/04/22 16:20 16:20 16:28 WBC RBC Hgb Hct MCV MCH MCHC RDW Std Deviation RDW Coeff of Elizabeth Plt Count MPV Immature Gran % (Auto) Neut % (Auto) Lymph % (Auto) [place] % (Auto) Eos % (Auto) Baso % (Auto) Absolute Neuts (auto) Absolute Lymphs (auto) Nucleated RBC % Differential Comment Diff Path Review PT INR APTT Sodium 141 Potassium 3.5 Chloride 107 Carbon Dioxide 21.0 Anion Gap 13 BUN 57 H Creatinine 1.97 H Estim Creat Clear Calc 23.21 Est GFR (MDRD) Af Amer 34 L Est GFR (MDRD) Non-Af 28 L BUN/Creatinine Ratio 28.9 H Glucose 113 H Lactic Acid 1.4 Calcium 8.9 Total Bilirubin 0.70 AST 17 ALT 14 Alkaline Phosphatase 108 Troponin I High Sens 7 Total Protein 7.4 Albumin 2.7 L Globulin 4.7 H Albumin/Globulin Ratio 0.6 L Urine Color [place] Urine Clarity Turbid Urine pH 7.0 Ur Specific [place] 1.010 Urine Protein 500 H Urine Glucose (UA) Normal Urine Ketones Negative Urine Occult Blood 250 H Urine Nitrite Positive H Urine Bilirubin Negative Urine Urobilinogen 1 H Ur Leukocyte Esterase 500 H Urine RBC 0 SEEN Urine WBC >100 SEEN Ur Squamous Epith Cells 0 SEEN Urine Bacteria 0 SEEN Urine Mucus 0 SEEN POC Glucose 10/04/22 17:00 WBC RBC Hgb Hct MCV MCH MCHC RDW Std Deviation RDW Coeff of Elizabeth Plt Count MPV Immature Gran % (Auto) Neut % (Auto) Lymph % (Auto) [place] % (Auto) Eos % (Auto) Baso % (Auto) Absolute Neuts (auto) Absolute Lymphs (auto) Nucleated RBC % Differential Comment Diff Path Review PT 15.1 H INR 1.2 APTT 38.6 H Sodium Potassium Chloride Carbon Dioxide Anion Gap BUN Creatinine Estim Creat Clear Calc Est GFR (MDRD) Af Amer Est GFR (MDRD) Non-Af BUN/Creatinine Ratio Glucose Lactic Acid Calcium Total Bilirubin AST ALT Alkaline Phosphatase Troponin I High Sens Total Protein Albumin Globulin Albumin/Globulin Ratio Urine Color Urine Clarity Urine pH Ur Specific [place] Urine Protein Urine Glucose (UA) Urine Ketones Urine Occult Blood Urine Nitrite Urine Bilirubin Urine Urobilinogen Ur Leukocyte Esterase Urine RBC Urine WBC Ur Squamous Epith Cells Urine Bacteria Urine Mucus POC Glucose ABG Data ABG results: ABG 10/04/22 17:50 Specimen Type ART Sample Site R Brach pH 7.35 Bicarbonate Actual 22.2 Total CO2 23 Base Excess -3 L O2 Saturation 100 H O2 % 40 ABG pCO2 39.9 ABG pO2 188 H Radiography Diagnostic Testing: Clinical Impression(s) from Imaging Studies Chest X-Ray 10/04/22 15:55 IMPRESSION: No radiographic evidence of acute cardiopulmonary disease. Electronically Signed: Vito Rodriguez MD at 16:11 EST , Brain CT 10/04/22 16:13 IMPRESSION: 1. No acute intracranial abnormality. There has been no change from the reference examination. 2. Stable underlying senescent change with small vessel ischemia. Electronically Signed: Vito Rodriguez MD at 17:10 EST , Discharge Plan Triage Chief Complaint: Mental Status Change ED Provider: Yosi Reynolds Dx/Rx/DC Orders Prescriptions: No Action sennosides 8.6 mg Tablet 8.6 mg PO QHS baclofen 10 mg Tablet 10 mg PO TID polyethylene glycol 3350 [Miralax] 17 gram/dose Powder 17 g PO DAILY ondansetron HCl [Zofran] 4 mg Tablet 4 mg PO Q8H PRN (Reason: Nausea) acetaminophen 500 mg Tablet 1,000 mg PO Q8H PRN (Reason: Pain) mirtazapine 30 mg Tablet 30 mg PO QHS ibuprofen 200 mg Tablet 600 mg PO Q8H PRN (Reason: Pain) omeprazole 20 mg Capsule,Delayed Release(Dr/Ec) 20 mg PO DAILY multivitamin Tablet 1 tab PO DAILY cholecalciferol (vitamin D3) 25 mcg (1,000 unit) Tablet 50 mcg PO DAILY Primary Care Provider: Sahara Florez Referrals: Sahara Florez MD [Primary Care Provider] -
--- NOTE | 2022-10-04 16:13 | CT_ITS ---
EXAM: CT HEAD WITHOUT INTRAVENOUS CONTRAST CLINICAL INDICATION: confusion TECHNIQUE: Multiple axial images were obtained of the head without intravenous contrast. This CT exam was performed using one or more of the following dose reduction techniques: automated exposure control, adjustment of the mA and/or kV according to patient size, and/or use of iterative reconstruction technique. This report was created using Ret[employer] report Reclog technology. COMPARISON: None. FINDINGS: BRAIN AND EXTRA-AXIAL SPACES: There is enlargement of ventricular system and cortical sulci. There is hypoattenuation in the periventricular white matter. No intra- or extra-axial hemorrhage. No evidence of acute infarct. No intracranial mass or mass effect. There is preservation of the villalba/white matter interface. Posterior fossa structures are unremarkable. Basal cisterns are patent. BONES/JOINTS: Unremarkable. No discrete lytic or blastic abnormalities. SINUSES: Unremarkable as visualized. Clear. MASTOID AIR CELLS: Unremarkable. Clear. ORBITS: Visualized globes, extraocular muscles, optic nerves and retrobulbar fat appear unremarkable. CT/Brain/Head without Contrast IMPRESSION: 1. No acute intracranial abnormality. There has been no change from the reference examination. 2. Stable underlying senescent change with small vessel ischemia. Electronically Signed: Vito Rodriguez MD at 17:10 EST ,
[2022-10-04 16:30] LABS: Bedside Glucose 115 mg/dL (74-106)
[2022-10-04 16:39] LABS: Bacteria 0 SEEN /hpf (None Seen); Mucous, Urine 0 SEEN /hpf (<or=2+); Red Blood Cells-Urine 0 SEEN /hpf (0-5); Squamous Epithelial Cells - UA 0 SEEN /hpf (5-10)
[2022-10-04 16:42] LABS: Absolute Neutrophil Count 13.4 X10^3/uL (2.0-7.7); Basophil# 0.06 X10^3/uL; Basophil% 0.4 % (0-1); Eosinophil# 0.01 X10^3/uL; Eosinophils% 0.1 % (0-5); Hematocrit 39.9 % (37-47); Hemoglobin 12.8 g/dL (12.0-15.0); Lymphocyte % 6.8 % (19-41); Mean Corp Hgb Conc 32.1 g/dL (32-36); Mean Corpuscular Hgb 28.4 pg (27.0-32.0); Mean Corpuscular Volume 88.7 fL (81-99); Monocyte# 1.58 X10^3/uL; Monocyte% 9.7 % (0-10); NRBC Flagged by Analyzer 0 % (0-5); Neutrophil % 82.6 % (47-70); POSITIVE COUNT YES; POSITIVE DIFFERENTIAL YES; RBC Distribution Width CV 14.6 % (11.6-14.6); RBC Distribution Width SD 46.9 fl (35.1-43.9); White Blood Count 16.2 K/mm3 (4.4-11.0)
[2022-10-04 16:44] LABS: Color, Urine Amber (Yellow); Glucose, Dipstick Normal (Normal); Ketone-Dipstick Negative (Negative); Leukocyte Esterase-Dipstick 500 /ul (Negative); Nitrite-Dipstick Positive (Negative); Occult Blood-Urine 250 /ul (Negative); Protein-Dipstick 500 mg/dl (Negative); Urine Bilirubin Dipstick Negative (Negative); Urine Clarity Turbid (Clear); Urine Urobilinogen 1 mg/dl (Normal)
[2022-10-04] MEDS: 0.9% Normal Saline 1,000 ML 999 ML IV ×3 (16:53→21:09)
[2022-10-04 16:57] LABS: White Blood Cells >100 SEEN /hpf (0-5)
[2022-10-04 17:03] LABS: ALB/GLOB Ratio 0.6 RATIO (0.9-2.4); AST(SGOT) 17 U/L (15-37); Alanine Aminotransfer ALT/SGPT 14 U/L (13-56); Albumin, Serum 2.7 g/dL (3.2-5.0); Alkaline Phosphatase 108 U/L (45-117); Anion Gap 13 (5-15); BUN 57 mg/dL (7-18); BUN/Creat Ratio 28.9 RATIO (10-20); Calcium,Total 8.9 mg/dL (8.5-10.1); Chloride 107 mmol/L (98-107); Creatinine, Serum 1.97 mg/dL (0.55-1.02); EST Glomerular Filtration Rate 28 mL/min (>60); Est Glom Filt Rate - Afr Amer 34 mL/min (>60); Estimated Creatinine Clearance 23.21 ml/min; Globulin 4.7 g/dL (2.2-4.2); Glucose 113 mg/dL (74-106); Potassium 3.5 mmol/L (3.5-5.1); Protein, Total 7.4 g/dL (6.4-8.2); Sodium Level 141 mmol/L (136-145); Troponin-I HS 7 pg/mL (3.0-54.0)
[2022-10-04 17:24] LABS: Lactic Acid 1.4 mmol/L (0.4-1.9)
[2022-10-04 17:37] LABS: Differential Indicated SCAN CRITERIA MET; Platelet Count 45 K/mm3 (150-450)
--- NOTE | 2022-10-04 17:37 | ED.RN ---
lab called critical of platelets of 45. dr curtis
[2022-10-04 17:38] LABS: Differential Comment SCANNED
[2022-10-04] MEDS: Ceftriaxone 1 GM/50 ML BAG IV (17:51)
[2022-10-04 17:53] LABS: International Normalized Ratio 1.2; Prothrombin Time (Protime)PT. 15.1 SECONDS (11.7-14.9)
[2022-10-04 17:54] LABS: Partial Thromboplast Time 38.6 Seconds (24.1-36.2)
[2022-10-04 17:56] LABS: Base Excess -3 mmol/L (-2 to +2); Bicarbonate 22.2 mmol/L (22-26); Blood Gas Specimen Type ART; FI02 40; PO2 188 mmHG (75-100); SITE R Brach; SO2 100 % (95-99); Total Carbon Dioxide 23 mmol/L; pCO2 39.9 mmHg (35-45); pH 7.35 (7.35-7.45)
[2022-10-04] MEDS: LORazepam 2 MG/ML Syringe IV (18:20)
--- NOTE | 2022-10-04 18:23 | NURSING ---
CALLED [facility] FOR TRANSFER. ONLY ACCEPTING STROKES, STEMIS AND ICU TRAUMAS
--- NOTE | 2022-10-04 18:38 | CON.PCM.HO_ITS ---
Assessment & Plan Assessment/Plan (1) Seizure: PLAN: Suspected though clearly no tonic-clonic activity is noted but her variable mentation is concerning for underlying seizure Patient has been evaluated for this back in November. is unsure of what the final conclusion was at that time. Patient does have severe MS and also does have profound atrophy which could be potential nidus for seizures I instructed the nurse to give the patient lorazepam in the emergency room. I discussed with the patient's , who is at bedside. And stated that we could care for her here even if she is having seizures and give her antiepileptic medications and so forth but we do not have sufficient information nor the proper specialist to best address if she is actually having seizures or not. Versus going to a tertiary facility for these test and specialist. He prefer the latter. I discussed with Dr. Reynolds in regards to the patient's 's wishes and he will look into seeing if the patient can be transferred. (2) UTI (urinary tract infection): QUALIFIERS: Urinary tract infection type: acute cystitis Hematuria presence: without hematuria Qualified Code(s): N30.00 - Acute cystitis without hematuria PLAN: Patient is apparently had similar episodes with the urinary tract infections before Patient did receive ceftriaxone (3) Thrombocytopenia: PLAN: Unclear etiology but this appears to be new Could be related with underlying sepsis versus DIC versus something others such as ITP or TTP This will need to be monitored where the patient's disposition will be PLAN: Plan Chronic conditions * Severe protein calorie malnutrition * Multiple sclerosis, relapsing remitting. * Debility: Patient has been residential bound for the past 2 years. Appears that the patient has poor quality of life. * Blindness: Patient has been chronically blind for some time according to the . When the patient did wake up at 1 point she was stating that she could not see. If no facility is able to accept the patient then the patient could be admitted here and I would recommend continue treatment for the urinary tract infection but also doing a work-up further for the possible seizures including an EEG, as needed lorazepam and scheduledlevetiracetam. Unclear patient will tolerate an MRI at this point in time but that would certainly need to be done when patient is more stabilized. HPI Consult Data Date of Consult: 10/04/22 HPI Narrative Reason for Consultation: Change in MS HPI Narrative: MARIA G CHILEL, is a 57 F who presents with change in mental status from the residential. Patient brought to the emergency room for change in mental s tatus. Patient was febrile here 100.3. Patient was having periods of being profoundly agitated to unarousable with noxious stimuli including sternal rub. Patient was having some skin irritation as actually placed skin barrier over the sternum. Patient was having some apneic issues the patient was placed on a BiPAP. An ABG was performed and appeared to be okay. I was asked to evaluate patient for admission. When I went in there, the patient was unresponsive to noxious stimuli including a sternal rub. She did have a corneal reflex, however. And then after several minutes, the patient was taken off the BiPAP where her oxygen remained stable. But then she became very agitated saying that she could not see (patient is blind due to her MS) and was agitated then shortly afterwards after about a minute or 2 was completely unresponsive again to noxious stimuli. Patient had an episode like this back in November where there was concern about that being a seizure and patient was transferred to [facility]. [facility] Medical History Anxiety and depression Chronic deep vein thrombosis (DVT) Chronic indwelling Lucia catheter Hypertension Neurogenic bladder Relapsing remitting multiple sclerosis Severe malnutrition Wheelchair bound Home Medications baclofen 10 mg tablet 10 mg PO TID PAIN 02/05/22 [History Last Taken 10/04/22] polyethylene glycol 3350 17 gram/dose oral powder (Miralax) 17 g PO DAILY CONSTIPATION 02/05/22 [History Last Taken 10/04/22] sennosides 8.6 mg tablet 8.6 mg PO QHS CONSTIPATION 02/05/22 [History Last Taken 10/03/22] acetaminophen 500 mg tablet 1,000 mg PO Q8H PRN Pain 10/04/22 [History Last Taken Unknown] cholecalciferol (vitamin D3) 25 mcg (1,000 unit) tablet 50 mcg PO DAILY SUPPLEMENT 10/04/22 [History Last Taken 10/04/22] ibuprofen 200 mg tablet 600 mg PO Q8H PRN Pain 10/04/22 [History Last Taken Unknown] mirtazapine 30 mg tablet 30 mg PO QHS SLEEP 10/04/22 [History Last Taken 10/03/22] multivitamin 1 tab PO DAILY SUPPLEMENT 10/04/22 [History Last Taken 10/04/22] omeprazole 20 mg capsule,delayed release 20 mg PO DAILY GERD 10/04/22 [History Last Taken 10/04/22] ondansetron HCl 4 mg tablet 4 mg PO Q8H PRN Nausea 10/04/22 [History Last Taken Unknown] Allergy/AdvReac Type Severity Reaction Status Date / Time 1,4-diaminobenzene Allergy NEEDS Verified 10/04/22 15:29 FOLLOW-UP Family History Mother Hypertension Father Hypertension Surgical History S/P section S/P hysterectomy Social History housing: residential Smoking Status: Never smoker Smokeless tobacco user: chewing tobacco how long ago did patient quit smoking: Unclear when she quit chew tobacco. counseling given: other alcohol intake: never substance use type: does not use ROS Review of Systems ROS Unobtainable: due to encephalopathy Physical Exam Const Constitutional Narrative: Variable. Patient from completely unresponsive to noxious stimuli to being very agitated unconsolable with a period of minutes. Amblyopia. Positive corneal reflex. HEENT normocephalic, head/scalp atraumatic and hearing grossly normal bilaterally Resp normal respiratory effort, no retractions, no use of accessory muscles and clear to auscultation bilaterally Cardio regular rate, regular rhythm, S1 normal heart sound and S2 normal heart sound GI normal to inspection, nondistended, normoactive bowel sounds, soft to palpation, non-tender and non-distended Extremity Extremity Narrative: Profound muscle atrophy Neuro moves all extremities Lab / Micro Data Attestation: I reviewed the patient's lab results. Result Diagrams: 10/04/22 16:20 10/04/22 16:20 Labs: Laboratory Results - last 24 hr 10/04/22 16:12: POC Glucose 115 H 10/04/22 16:20: WBC 16.2 H, RBC 4.50, Hgb 12.8, Hct 39.9, MCV 88.7, MCH 28.4, MCHC 32.1, RDW Std Deviation 46.9 H, RDW Coeff of [place] 14.6, Plt Count 45 L*, MPV TNP, Immature Gran % (Auto) 0.400, Neut % (Auto) 82.6 H, Lymph % (Auto) 6.8 L, [place] % (Auto) 9.7, Eos % (Auto) 0.1, Baso % (Auto) 0.4, Absolute Neuts (auto) 13.4 H, Absolute Lymphs (auto) 1.10, Nucleated RBC % 0, Differential Comment SCANNED, Diff Path Review January foll 10/04/22 16:20: PT Cancelled, INR Cancelled, APTT Cancelled 10/04/22 16:20: Sodium 141, Potassium 3.5, Chloride 107, Carbon Dioxide 21.0, Anion Gap 13, BUN 57 H, Creatinine 1.97 H, Estim Creat Clear Calc 23.21, Est GFR (MDRD) Af Amer 34 L, Est GFR (MDRD) Non-Af 28 L, BUN/Creatinine Ratio 28.9 H, Glucose 113 H, Calcium 8.9, Total Bilirubin 0.70, AST 17, ALT 14, Alkaline Phosphatase 108, Troponin I High Sens 7, Total Protein 7.4, Albumin 2.7 L, Globulin 4.7 H, Albumin/Globulin Ratio 0.6 L 10/04/22 16:20: Lactic Acid 1.4 10/04/22 16:28: Urine Color [place], Urine Clarity Turbid, Urine pH 7.0, Ur Specific [place] 1.010, Urine Protein 500 H, Urine Glucose (UA) Normal, Urine Ketones Negative, Urine Occult Blood 250 H, Urine Nitrite Positive H, Urine Bilirubin Negative, Urine Urobilinogen 1 H, Ur Leukocyte Esterase 500 H, Urine RBC 0 SEEN, Urine WBC >100 SEEN, Ur Squamous Epith Cells 0 SEEN, Urine Bacteria 0 SEEN, Urine Mucus 0 SEEN 10/04/22 17:00: PT 15.1 H, INR 1.2, APTT 38.6 H Micro: Microbiology 10/04/22 16:28 Nasal Secretion SARS-CoV-2 & FLU Antigen (Rapid) - Final ABG Data ABG results: ABG 10/04/22 17:50 Specimen Type ART Sample Site R Brach pH 7.35 Bicarbonate Actual 22.2 Total CO2 23 Base Excess -3 L O2 Saturation 100 H O2 % 40 ABG pCO2 39.9 ABG pO2 188 H Radiology Impression Chest X-Ray 10/04/22 15:55 IMPRESSION: No radiographic evidence of acute cardiopulmonary disease. Electronically Signed: Vito Rodriguez MD at 16:11 EST , Brain CT 10/04/22 16:13 IMPRESSION: 1. No acute intracranial abnormality. There has been no change from the reference examination. 2. Stable underlying senescent change with small vessel ischemia. Electronically Signed: Vito Rodriguez MD at 17:10 EST , Charges/Coding Visit Charges Office Visits / Consults: [id number] OP Consult L5
[2022-10-04] MEDS: levETIRAcetam IV 1,000 MG/100 ML BAG 400 MG IV (19:58)
--- NOTE | 2022-10-04 21:00 | EKG12_ITS ---
Test Reason : ALT MENTAL Blood Pressure : / mmHG Vent. Rate : 090 BPM Atrial Rate : 090 BPM P-R Int : 142 ms QRS Dur : 076 ms QT Int : 366 ms P-R-T Axes : 054 -26 039 degrees QTc Int : 447 ms Normal sinus rhythm Low voltage QRS Borderline ECG Confirmed by BOAZ ZIEGLER, TASIA ([id number]), video effects editor ZEUS ESPINOZA ([id number]) on 10/06/2022 8:57:38 AM Referred By: Confirmed By:SACHI SANDRA MD
--- NOTE | 2022-10-05 05:59 | ED.RN ---
positive blood cultures received from lab. called [facility] ICU to report gram negative charla results, spoke with Alex. Will fax to [phone]
--- NOTE | 2022-10-06 01:16 | ED.RN ---
lab calls with critical positive blood culture result gram positive cocci. [facility] called and notified, spoke with Carmelo WOMACK and faxed to [phone].
[2022-10-06 09:50] LABS: Pathologist Review Reviewed
== END 2022-10-04 22:15 | disposition short-term general hospital (02) ==
PROVIDERS: Emergency Provider Student in an Organized Health Care Education/Training Program; PCP Family Medicine; Visit Provider Student in an Organized Health Care Education/Training Program
DX: N39.0 Urinary tract infection, site not specified (principal); E43 Unspecified severe protein-calorie malnutrition; G35 Multiple sclerosis; R56.9 Unspecified convulsions; D69.6 Thrombocytopenia, unspecified; R06.82 Tachypnea, not elsewhere classified; Z87.891 Personal history of nicotine dependence; R41.0 Disorientation, unspecified; I10 Essential (primary) hypertension; D72.829 Elevated white blood cell count, unspecified; Z99.3 Dependence on wheelchair
CPT/HCPCS: 36600; 70450; 71045; 80053; 81001; 82803; 82962; 83605; 84484; 85025; 85610; 85730; 87040; 87077; 87086; 87088; 87149; 87186; 87428; 93005; 94002; 96365; 96367; 96375; 99285; J7030